=== PATIENT | male | born 1965 | race Caucasian/White ===

== ENCOUNTER 2023-08-21 13:33 | Inpatient (IN) | payer BC, OTHER, MEDICARE, MEDICAID ==
[~2023-08-21] VITALS: Ht 182.9 cm; Wt 116.6 kg
[2023-08-21 18:54] VITALS: BP 135/63; TEMP 97.9; O2SAT 95
[2023-08-21] MEDS ORDERED: GLUCOSE 4GM CHEW TABLET PO PRN (19:25)
[2023-08-21] MEDS ORDERED: DEXTROSE 50% 50ML SYRINGE IV PRN (19:25)
[2023-08-21] MEDS ORDERED: GLUCAGON INJ 1MG VIAL SC PRN (19:25)
[2023-08-21 19:32] LABS: ABG BASE EXCESS -1.6 (-2.0-2.0); ABG HCO3 24.2 MMOL/L (22.0-26.0); ABG O2 SATURATION 93.8 % (95.0-99.0); ABG PARTIAL PRESSURE CO2 45.8 mmHg (35.0-45.0); ABG PARTIAL PRESSURE O2 72.1 mmHg (75.0-100.0); ABG STANDARD HCO3 23.1 MMOL/L. (22.0-26.0); ABG TOTAL CO2 25.6 MMOL/L (22.0-29.0)
[2023-08-21 19:51] LABS: BASO % 0.6 % (0.0-1.0); EOS # 0.1 10^3/uL (0.0-0.5); EOS % 2.6 % (0.0-3.0); HEMATOCRIT 24.2 % (42.0-52.0); HEMOGLOBIN 7.3 g/dl (13.5-17.5); LYMPH # 0.3 10^3/uL (1.5-5.0); LYMPH % 5.9 % (24.0-44.0); MEAN CORPUSCULAR HEMOGLOBIN 28.3 pg (27.0-33.0); MEAN CORPUSCULAR HGB CONC 30.2 g/dl (32.0-36.5); MEAN CORPUSCULAR VOLUME 93.8 fl (80.0-96.0); MONO # 0.6 10^3/uL (0.0-0.8); MONO % 11.5 % (2.0-8.0); NEUTROPHILS # 4.2 10^3/uL (1.5-8.5); NEUTROPHILS % 78.1 % (36.0-66.0); PLATELET COUNT, AUTOMATED 127 10^3/uL (150-450); RED BLOOD COUNT 2.58 10^6/uL (4.30-6.10); WHITE BLOOD COUNT 5.4 10^3/uL (4.0-10.0)
[2023-08-21 19:52] VITALS: O2SAT 94
[2023-08-21] MEDS: IPRATROPIUM 0.5MG/ALBUTEROL 2.5MG INH SOL UD 3ML (DUONEB) NEB SCH ×2 (20:00→21:15)
[2023-08-21 20:08] LABS: INR 1.23; PROTHROMBIN TIME 15.1 SECONDS (12.5-14.5)
[2023-08-21 20:09] LABS: PARTIAL THROMBOPLASTIN TIME 28.5 SECONDS (24.8-34.2)
[2023-08-21 20:23] LABS: C REACTIVE PROTEIN QUANTITATIV 2.6 MG/DL (<1.0)
[2023-08-21 20:24] LABS: CK-MB VALUE MASS 2.3 NG/ML (<3.6); MB/CK RELATIVE INDEX 5.89 (< OR =4)
[2023-08-21 20:25] LABS: ALBUMIN 2.6 G/DL (3.2-5.2); BILIRUBIN,TOTAL 0.5 MG/DL (0.3-1.2); CREATININE FOR GFR 3.45 MG/DL (0.70-1.30); GLOMERULAR FILTRATION RATE 19.5 (>56); MAGNESIUM LEVEL 2.6 MG/DL (1.8-2.4); POTASSIUM SERUM 4.6 MMOL/L (3.5-5.1); TOTAL PROTEIN 6.1 G/DL (5.7-8.2)
[2023-08-21] MEDS ORDERED: NS 1,000 ML IV SCH (20:35)
[2023-08-21] MEDS ORDERED: LR 1,000 ML IV SCH (20:35)
[2023-08-21] MEDS ORDERED: ALBUTEROL SULFATE 2.5MG/0.5ML INH NEB SOLN NEB ONE (20:45)
[2023-08-21] MEDS ORDERED: ALBUTEROL SULFATE 2.5MG/0.5ML INH NEB SOLN NEB PRN (20:55)
[2023-08-21] MEDS: INSULIN LISPRO (NovoLOG) PER UNIT SC SCH (21:00)
[2023-08-21] MEDS: methylPREDNISolone 40MG 1ML VIAL IV SCH (21:43)
[2023-08-21] MEDS ORDERED: cefTRIAXone SOD 1 GM in D5W MINI-BAG PLUS 50 ML IV SCH (22:00)
[2023-08-21] MEDS: PIPERACILLIN/TAZOBACTAM SOD 3.375 GM in D5W MINI-BAG PLUS 50 ML IV SCH (22:03)
[2023-08-21] MEDS ORDERED: BREO1INH PO (22:34)
[2023-08-21] MEDS ORDERED: INSUH10VL SC (22:34)
[2023-08-21] MEDS ORDERED: VENL75CA2 PO (22:34)
[2023-08-21] MEDS ORDERED: MUCI1TAB16 PO (22:34)
[2023-08-21] MEDS ORDERED: CEPH250T PO (22:34)
[2023-08-21] MEDS ORDERED: FLOM0.4C39 PO (22:34)
[2023-08-21] MEDS ORDERED: FURO40TA2 PO (22:34)
[2023-08-21] MEDS ORDERED: HYDR25TA PO (22:34)
[2023-08-21] MEDS ORDERED: IPRA0.00 INH (22:52)
[2023-08-21] MEDS ORDERED: XALA0.007 OU (22:52)
[2023-08-21] MEDS ORDERED: RANO10002 PO (22:52)
[2023-08-21] MEDS ORDERED: ISOS20TA4 PO (22:52)
[2023-08-21] MEDS ORDERED: NITR0.4S14 SL (22:52)
[2023-08-21] MEDS ORDERED: SENN-23 PO (22:52)
[2023-08-21] MEDS ORDERED: MELA3TAB30 PO (22:52)
[2023-08-21] MEDS ORDERED: ATOR1TAB21 PO (22:52)
[2023-08-21] MEDS ORDERED: AMLO1TAB24 PO (22:52)
[2023-08-21] MEDS ORDERED: AMIO200T49 PO (22:52)
[2023-08-21] MEDS ORDERED: METO25TA4 PO (22:52)
[2023-08-21] MEDS ORDERED: ONDA-83 PO (22:52)
[2023-08-21] MEDS ORDERED: ACET1TAB55 PO (22:52)
[2023-08-21] MEDS ORDERED: BUSP30TA PO (22:52)
[2023-08-21] MEDS ORDERED: LANTINJ4 SQ (22:52)
[2023-08-21] MEDS ORDERED: BACI1CAP PO (22:52)
[2023-08-21] MEDS ORDERED: HOME MED LIST COMPLETE! XX SCH (22:55)
[2023-08-21 23:29] VITALS: BP 121/67; TEMP 97.4; O2SAT 92
[2023-08-21 23:46] VITALS: BP 127/73; TEMP 97.5; O2SAT 93
[2023-08-22] VITALS (11 sets, daily range): BP systolic 111–141; BP diastolic 57–79; TEMP 97–98.1; O2SAT 89–100
[2023-08-22] MEDS: IPRATROPIUM 0.5MG/ALBUTEROL 2.5MG INH SOL UD 3ML (DUONEB) NEB SCH ×4 (02:42→19:24)
[2023-08-22] MEDS: **hydrALAZINE HCL** 25 MG TAB PO SCH ×4 (02:45→21:07)
[2023-08-22] MEDS: METOPROLOL TART 25 MG TABLET PO SCH ×3 (02:45→21:07)
[2023-08-22] MEDS: LEVEMIR (INSULIN DETEMIR) 1 UNITS/0.01ML SQ SCH ×3 (02:45→21:07)
[2023-08-22] MEDS: ISOSORBIDE DIN. (ISORDIL) 20 MG TAB PO SCH ×4 (03:00→21:07)
[2023-08-22] MEDS: LATANOPROST 0.005% OPHTH SOLN 2.5 ML OU SCH ×2 (03:36→21:07)
[2023-08-22] MEDS: PIPERACILLIN/TAZOBACTAM SOD 3.375 GM in D5W MINI-BAG PLUS 50 ML IV SCH ×4 (04:38→22:57)
[2023-08-22 04:43] LABS: HEMATOCRIT 26.9 % (42.0-52.0); HEMOGLOBIN 8.3 g/dl (13.5-17.5)
[2023-08-22] MEDS ORDERED: FUROSEMIDE 20MG/2ML VIAL IV ONE (05:00)
[2023-08-22] MEDS ORDERED: ZINC OXIDE 30.6% CREAM 92GM TUBE (SECURA EPC) TOP SCH (06:00)
[2023-08-22 06:23] LABS: CALCIUM LEVEL 8.3 MG/DL (8.5-10.1); CREATININE FOR GFR 3.33 MG/DL (0.70-1.30); GLOMERULAR FILTRATION RATE 20.3 (>56); POTASSIUM SERUM 4.9 MMOL/L (3.5-5.1)
[2023-08-22 06:27] LABS: HEMATOCRIT 26.3 % (42.0-52.0); HEMOGLOBIN 8.2 g/dl (13.5-17.5); MEAN CORPUSCULAR HEMOGLOBIN 28.9 pg (27.0-33.0); MEAN CORPUSCULAR HGB CONC 31.2 g/dl (32.0-36.5); MEAN CORPUSCULAR VOLUME 92.6 fl (80.0-96.0); PLATELET COUNT, AUTOMATED 126 10^3/uL (150-450); RED BLOOD COUNT 2.84 10^6/uL (4.30-6.10); WHITE BLOOD COUNT 5.3 10^3/uL (4.0-10.0)
[2023-08-22] MEDS: methylPREDNISolone 40MG 1ML VIAL IV SCH ×2 (06:31→17:49)
[2023-08-22] MEDS: DIAPER RELIEF PASTE (DESITIN) 60GM TOP SCH (06:31)
[2023-08-22] MEDS: HEPARIN SOD (PORCINE) 5000UNITS/ML 1ML VIAL/SYRINGE SC SCH ×3 (06:31→21:07)
[2023-08-22] MEDS: busPIRone 10 MG TAB PO SCH ×2 (08:44→21:07)
[2023-08-22] MEDS: VENLAFAXINE **XR** 75MG CAPSULE PO SCH (08:45)
[2023-08-22] MEDS: TAMSULOSIN 0.4 MG CAP PO SCH (08:45)
[2023-08-22] MEDS: AMIODARONE 200 MG TAB (PACERONE) PO SCH (08:45)
[2023-08-22] MEDS: INSULIN LISPRO (NovoLOG) PER UNIT SC SCH ×4 (08:50→20:36)
[2023-08-22] MEDS ORDERED: amLODIPine 5 MG TAB PO SCH (09:00)
[2023-08-22] MEDS ORDERED: NITROGLYCERIN 0.4MG SUBL TABLET SL PRN (10:05)
[2023-08-22] MEDS: FUROSEMIDE injection 250 MG in D5W 225 ML IV SCH (11:50)
[2023-08-22] MEDS: ADVAIR HFA 115/21MCG INHALER INH SCH ×2 (11:58→19:24)
[2023-08-22] MEDS: RANOLAZINE 500MG ER TAB PO SCH ×2 (13:18→21:07)
[2023-08-22] MEDS: LACTOBACILLUS ACIDOPHILUS CAP (BACID) PO SCH (18:06)
[2023-08-22] MEDS ORDERED: ASPIRIN 81MG CHEW TABLET PO ONE (21:00)
[2023-08-22] MEDS: ATORVASTATIN 20 MG TAB PO SCH (21:07)
[2023-08-22] MEDS: SENOKOT S TAB PO SCH (21:07)
[2023-08-23] VITALS (13 sets, daily range): BP systolic 107–135; BP diastolic 53–87; TEMP 97–98.1; O2SAT 90–97
[2023-08-23] MEDS: IPRATROPIUM 0.5MG/ALBUTEROL 2.5MG INH SOL UD 3ML (DUONEB) NEB SCH ×4 (01:37→19:57)
[2023-08-23] MEDS: PIPERACILLIN/TAZOBACTAM SOD 3.375 GM in D5W MINI-BAG PLUS 50 ML IV SCH ×4 (04:34→21:57)
[2023-08-23] MEDS: HEPARIN SOD (PORCINE) 5000UNITS/ML 1ML VIAL/SYRINGE SC SCH ×3 (05:35→21:56)
[2023-08-23] MEDS: methylPREDNISolone 40MG 1ML VIAL IV SCH (05:35)
[2023-08-23] MEDS ORDERED: FUROSEMIDE 20MG/2ML VIAL IV SCH (06:00)
[2023-08-23 06:26] LABS: HEMATOCRIT 24.6 % (42.0-52.0); HEMOGLOBIN 7.8 g/dl (13.5-17.5); LYMPH # 0.2 10^3/uL (1.5-5.0); LYMPH % 4.7 % (24.0-44.0); MEAN CORPUSCULAR HEMOGLOBIN 29.1 pg (27.0-33.0); MEAN CORPUSCULAR HGB CONC 31.7 g/dl (32.0-36.5); MEAN CORPUSCULAR VOLUME 91.8 fl (80.0-96.0); MONO # 0.4 10^3/uL (0.0-0.8); MONO % 7.9 % (2.0-8.0); NEUTROPHILS # 4.5 10^3/uL (1.5-8.5); NEUTROPHILS % 86.6 % (36.0-66.0); PLATELET COUNT, AUTOMATED 127 10^3/uL (150-450); RED BLOOD COUNT 2.68 10^6/uL (4.30-6.10); WHITE BLOOD COUNT 5.2 10^3/uL (4.0-10.0)
[2023-08-23 06:45] LABS: ALBUMIN 2.5 G/DL (3.2-5.2); BILIRUBIN,TOTAL 0.4 MG/DL (0.3-1.2); CALCIUM LEVEL 8.3 MG/DL (8.5-10.1); CREATININE FOR GFR 3.1 MG/DL (0.70-1.30); GLOMERULAR FILTRATION RATE 22.1 (>56); MAGNESIUM LEVEL 2.4 MG/DL (1.8-2.4); POTASSIUM SERUM 4.3 MMOL/L (3.5-5.1); TOTAL PROTEIN 5.9 G/DL (5.7-8.2)
[2023-08-23] MEDS: ADVAIR HFA 115/21MCG INHALER INH SCH ×2 (07:22→19:57)
[2023-08-23] MEDS: INSULIN LISPRO (NovoLOG) PER UNIT SC SCH ×4 (07:30→21:00)
[2023-08-23] MEDS: FUROSEMIDE injection 250 MG in D5W 225 ML IV SCH (08:38)
[2023-08-23] MEDS ORDERED: ASPIRIN 81MG ENTERIC TABLET PO SCH (09:00)
[2023-08-23] MEDS: busPIRone 10 MG TAB PO SCH ×2 (09:47→21:52)
[2023-08-23] MEDS: RANOLAZINE 500MG ER TAB PO SCH ×2 (09:47→21:55)
[2023-08-23] MEDS: VENLAFAXINE **XR** 75MG CAPSULE PO SCH (09:48)
[2023-08-23] MEDS: METOPROLOL TART 25 MG TABLET PO SCH ×2 (09:48→21:55)
[2023-08-23] MEDS: TAMSULOSIN 0.4 MG CAP PO SCH (09:48)
[2023-08-23] MEDS: ASPIRIN 81MG CHEW TABLET PO SCH (09:48)
[2023-08-23] MEDS: SPIRONOLACTONE 25 MG TAB PO SCH ×2 (09:57→18:03)
[2023-08-23] MEDS: ISOSORBIDE DIN. (ISORDIL) 20 MG TAB PO SCH ×3 (09:57→22:02)
[2023-08-23] MEDS: AMIODARONE 200 MG TAB (PACERONE) PO SCH (09:57)
[2023-08-23] MEDS: LACTOBACILLUS ACIDOPHILUS CAP (BACID) PO SCH ×2 (09:57→18:03)
[2023-08-23] MEDS: LEVEMIR (INSULIN DETEMIR) 1 UNITS/0.01ML SQ SCH ×2 (09:58→21:56)
[2023-08-23] MEDS: DIAPER RELIEF PASTE (DESITIN) 60GM TOP SCH (09:58)
[2023-08-23] MEDS: **hydrALAZINE HCL** 25 MG TAB PO SCH (10:00)
[2023-08-23] MEDS: predniSONE 20 MG TAB PO SCH (12:34)
[2023-08-23] MEDS: ATORVASTATIN 20 MG TAB PO SCH (21:52)
[2023-08-23] MEDS: SENOKOT S TAB PO SCH (21:55)
[2023-08-23] MEDS: LATANOPROST 0.005% OPHTH SOLN 2.5 ML OU SCH (21:56)
[2023-08-23 23:41] LABS: HEMATOCRIT 28.1 % (42.0-52.0); HEMOGLOBIN 8.9 g/dl (13.5-17.5)
[2023-08-24] VITALS (42 sets, daily range): BP systolic 131–152; BP diastolic 67–80; TEMP 97.3–97.9; O2SAT 86–100
[2023-08-24] MEDS: IPRATROPIUM 0.5MG/ALBUTEROL 2.5MG INH SOL UD 3ML (DUONEB) NEB SCH ×4 (02:38→19:12)
[2023-08-24] MEDS: HEPARIN SOD (PORCINE) 5000UNITS/ML 1ML VIAL/SYRINGE SC SCH ×3 (05:26→21:35)
[2023-08-24 05:52] LABS: BASO % 0.2 % (0.0-1.0); HEMATOCRIT 29.7 % (42.0-52.0); HEMOGLOBIN 9.4 g/dl (13.5-17.5); LYMPH # 0.3 10^3/uL (1.5-5.0); LYMPH % 4.3 % (24.0-44.0); MEAN CORPUSCULAR HEMOGLOBIN 28.7 pg (27.0-33.0); MEAN CORPUSCULAR HGB CONC 31.6 g/dl (32.0-36.5); MEAN CORPUSCULAR VOLUME 90.5 fl (80.0-96.0); MONO # 0.5 10^3/uL (0.0-0.8); MONO % 8.7 % (2.0-8.0); NEUTROPHILS % 85.8 % (36.0-66.0); PLATELET COUNT, AUTOMATED 136 10^3/uL (150-450); RED BLOOD COUNT 3.28 10^6/uL (4.30-6.10); WHITE BLOOD COUNT 5.9 10^3/uL (4.0-10.0)
[2023-08-24 06:13] LABS: ALBUMIN 2.5 G/DL (3.2-5.2); BILIRUBIN,TOTAL 0.5 MG/DL (0.3-1.2); CALCIUM LEVEL 8.5 MG/DL (8.5-10.1); CREATININE FOR GFR 3.07 MG/DL (0.70-1.30); GLOMERULAR FILTRATION RATE 22.3 (>56); MAGNESIUM LEVEL 2.3 MG/DL (1.8-2.4); TOTAL PROTEIN 5.9 G/DL (5.7-8.2)
[2023-08-24] MEDS: ADVAIR HFA 115/21MCG INHALER INH SCH ×2 (08:00→19:12)
[2023-08-24] MEDS: INSULIN LISPRO (NovoLOG) PER UNIT SC SCH ×4 (08:56→21:00)
[2023-08-24] MEDS: LEVEMIR (INSULIN DETEMIR) 1 UNITS/0.01ML SQ SCH ×2 (08:56→21:35)
[2023-08-24] MEDS: RANOLAZINE 500MG ER TAB PO SCH ×2 (08:57→21:33)
[2023-08-24] MEDS: busPIRone 10 MG TAB PO SCH ×2 (08:57→21:32)
[2023-08-24] MEDS: VENLAFAXINE **XR** 75MG CAPSULE PO SCH (08:59)
[2023-08-24] MEDS: ISOSORBIDE DIN. (ISORDIL) 20 MG TAB PO SCH ×3 (08:59→21:32)
[2023-08-24] MEDS: ASPIRIN 81MG CHEW TABLET PO SCH (08:59)
[2023-08-24] MEDS: DIAPER RELIEF PASTE (DESITIN) 60GM TOP SCH (08:59)
[2023-08-24] MEDS: LACTOBACILLUS ACIDOPHILUS CAP (BACID) PO SCH ×2 (09:00→17:32)
[2023-08-24] MEDS: METOPROLOL TART 25 MG TABLET PO SCH ×2 (09:00→21:33)
[2023-08-24] MEDS: AMIODARONE 200 MG TAB (PACERONE) PO SCH (09:00)
[2023-08-24] MEDS: SPIRONOLACTONE 25 MG TAB PO SCH ×2 (09:00→17:32)
[2023-08-24] MEDS: TAMSULOSIN 0.4 MG CAP PO SCH (09:01)
[2023-08-24] MEDS: predniSONE 20 MG TAB PO SCH (09:01)
[2023-08-24] MEDS: FUROSEMIDE injection 250 MG in D5W 225 ML IV SCH (09:56)
[2023-08-24] MEDS: ATORVASTATIN 20 MG TAB PO SCH (21:32)
[2023-08-24] MEDS: SENOKOT S TAB PO SCH (21:33)
[2023-08-24] MEDS: LATANOPROST 0.005% OPHTH SOLN 2.5 ML OU SCH (21:35)
[2023-08-25] VITALS (14 sets, daily range): BP systolic 127–152; BP diastolic 60–79; TEMP 96.7–98.1; O2SAT 91–100
[2023-08-25] MEDS: IPRATROPIUM 0.5MG/ALBUTEROL 2.5MG INH SOL UD 3ML (DUONEB) NEB SCH ×4 (01:37→19:27)
[2023-08-25] MEDS: HEPARIN SOD (PORCINE) 5000UNITS/ML 1ML VIAL/SYRINGE SC SCH ×3 (05:44→22:18)
[2023-08-25 06:35] LABS: EOS % 0.2 % (0.0-3.0); HEMATOCRIT 29.2 % (42.0-52.0); HEMOGLOBIN 9.3 g/dl (13.5-17.5); LYMPH # 0.5 10^3/uL (1.5-5.0); LYMPH % 7.5 % (24.0-44.0); MEAN CORPUSCULAR HEMOGLOBIN 28.5 pg (27.0-33.0); MEAN CORPUSCULAR HGB CONC 31.8 g/dl (32.0-36.5); MEAN CORPUSCULAR VOLUME 89.6 fl (80.0-96.0); MONO # 0.7 10^3/uL (0.0-0.8); MONO % 10.4 % (2.0-8.0); NEUTROPHILS # 5.3 10^3/uL (1.5-8.5); PLATELET COUNT, AUTOMATED 133 10^3/uL (150-450); RED BLOOD COUNT 3.26 10^6/uL (4.30-6.10); WHITE BLOOD COUNT 6.5 10^3/uL (4.0-10.0)
[2023-08-25 07:06] LABS: ALBUMIN 2.4 G/DL (3.2-5.2); BILIRUBIN,TOTAL 0.6 MG/DL (0.3-1.2); CALCIUM LEVEL 8.5 MG/DL (8.5-10.1); CREATININE FOR GFR 2.81 MG/DL (0.70-1.30); GLOMERULAR FILTRATION RATE 24.7 (>56); MAGNESIUM LEVEL 2.1 MG/DL (1.8-2.4); POTASSIUM SERUM 3.7 MMOL/L (3.5-5.1); TOTAL PROTEIN 5.8 G/DL (5.7-8.2)
[2023-08-25] MEDS: ADVAIR HFA 115/21MCG INHALER INH SCH ×2 (07:53→19:28)
[2023-08-25] MEDS: INSULIN LISPRO (NovoLOG) PER UNIT SC SCH ×4 (08:32→20:08)
[2023-08-25] MEDS: VENLAFAXINE **XR** 75MG CAPSULE PO SCH (08:33)
[2023-08-25] MEDS: LACTOBACILLUS ACIDOPHILUS CAP (BACID) PO SCH ×2 (08:33→18:09)
[2023-08-25] MEDS: busPIRone 10 MG TAB PO SCH ×2 (08:33→22:18)
[2023-08-25] MEDS: RANOLAZINE 500MG ER TAB PO SCH ×2 (08:33→22:16)
[2023-08-25] MEDS: LEVEMIR (INSULIN DETEMIR) 1 UNITS/0.01ML SQ SCH ×2 (08:33→22:19)
[2023-08-25] MEDS: ASPIRIN 81MG CHEW TABLET PO SCH (08:34)
[2023-08-25] MEDS: predniSONE 10MG TAB PO SCH (08:34)
[2023-08-25] MEDS: ISOSORBIDE DIN. (ISORDIL) 20 MG TAB PO SCH ×3 (08:34→22:17)
[2023-08-25] MEDS: AMIODARONE 200 MG TAB (PACERONE) PO SCH (08:34)
[2023-08-25] MEDS: METOPROLOL TART 25 MG TABLET PO SCH ×2 (08:34→22:17)
[2023-08-25] MEDS: TAMSULOSIN 0.4 MG CAP PO SCH (08:34)
[2023-08-25] MEDS: SPIRONOLACTONE 25 MG TAB PO SCH ×2 (08:34→18:09)
[2023-08-25] MEDS: DIAPER RELIEF PASTE (DESITIN) 60GM TOP SCH (08:41)
[2023-08-25] MEDS: FUROSEMIDE injection 250 MG in D5W 225 ML IV SCH (09:53)
[2023-08-25] MEDS: SENOKOT S TAB PO SCH (22:18)
[2023-08-25] MEDS: ATORVASTATIN 20 MG TAB PO SCH (22:18)
[2023-08-25] MEDS: LATANOPROST 0.005% OPHTH SOLN 2.5 ML OU SCH (22:19)
[2023-08-26] VITALS (18 sets, daily range): BP systolic 121–173; BP diastolic 59–84; TEMP 97.3–97.9; O2SAT 95–100
[2023-08-26] MEDS: IPRATROPIUM 0.5MG/ALBUTEROL 2.5MG INH SOL UD 3ML (DUONEB) NEB SCH ×4 (00:44→19:24)
[2023-08-26] MEDS: HEPARIN SOD (PORCINE) 5000UNITS/ML 1ML VIAL/SYRINGE SC SCH ×3 (05:53→20:24)
[2023-08-26] MEDS: ADVAIR HFA 115/21MCG INHALER INH SCH ×2 (07:40→19:24)
[2023-08-26 08:09] LABS: ALBUMIN 2.4 G/DL (3.2-5.2); BILIRUBIN,TOTAL 0.5 MG/DL (0.3-1.2); CALCIUM LEVEL 8.5 MG/DL (8.5-10.1); CREATININE FOR GFR 2.28 MG/DL (0.70-1.30); GLOMERULAR FILTRATION RATE 31.5 (>56); MAGNESIUM LEVEL 1.8 MG/DL (1.8-2.4); POTASSIUM SERUM 3.8 MMOL/L (3.5-5.1); TOTAL PROTEIN 5.6 G/DL (5.7-8.2)
[2023-08-26 08:34] LABS: EOS % 0.3 % (0.0-3.0); HEMATOCRIT 30.2 % (42.0-52.0); HEMOGLOBIN 9.5 g/dl (13.5-17.5); LYMPH # 0.5 10^3/uL (1.5-5.0); MEAN CORPUSCULAR HEMOGLOBIN 28.2 pg (27.0-33.0); MEAN CORPUSCULAR HGB CONC 31.5 g/dl (32.0-36.5); MEAN CORPUSCULAR VOLUME 89.6 fl (80.0-96.0); MONO # 0.6 10^3/uL (0.0-0.8); MONO % 9.8 % (2.0-8.0); NEUTROPHILS # 5.4 10^3/uL (1.5-8.5); NEUTROPHILS % 82.3 % (36.0-66.0); PLATELET COUNT, AUTOMATED 132 10^3/uL (150-450); RED BLOOD COUNT 3.37 10^6/uL (4.30-6.10); WHITE BLOOD COUNT 6.5 10^3/uL (4.0-10.0)
[2023-08-26] MEDS: METOPROLOL TART 25 MG TABLET PO SCH ×2 (09:00→20:25)
[2023-08-26] MEDS: LACTOBACILLUS ACIDOPHILUS CAP (BACID) PO SCH ×2 (09:35→17:13)
[2023-08-26] MEDS: VENLAFAXINE **XR** 75MG CAPSULE PO SCH (09:35)
[2023-08-26] MEDS: FUROSEMIDE injection 250 MG in D5W 225 ML IV SCH (09:35)
[2023-08-26] MEDS: predniSONE 10MG TAB PO SCH (09:36)
[2023-08-26] MEDS: SPIRONOLACTONE 25 MG TAB PO SCH ×2 (09:36→17:13)
[2023-08-26] MEDS: RANOLAZINE 500MG ER TAB PO SCH ×2 (09:36→20:25)
[2023-08-26] MEDS: busPIRone 10 MG TAB PO SCH ×2 (09:36→20:25)
[2023-08-26] MEDS: AMIODARONE 200 MG TAB (PACERONE) PO SCH (09:37)
[2023-08-26] MEDS: ASPIRIN 81MG CHEW TABLET PO SCH (09:37)
[2023-08-26] MEDS: TAMSULOSIN 0.4 MG CAP PO SCH (09:37)
[2023-08-26] MEDS: LEVEMIR (INSULIN DETEMIR) 1 UNITS/0.01ML SQ SCH ×2 (09:37→20:26)
[2023-08-26] MEDS: INSULIN LISPRO (NovoLOG) PER UNIT SC SCH ×4 (09:38→20:26)
[2023-08-26] MEDS: **hydrALAZINE HCL** 25 MG TAB PO SCH ×3 (09:38→20:25)
[2023-08-26] MEDS: DIAPER RELIEF PASTE (DESITIN) 60GM TOP SCH (09:43)
[2023-08-26] MEDS: ISOSORBIDE DIN. (ISORDIL) 20 MG TAB PO SCH ×3 (09:43→20:24)
[2023-08-26] MEDS ORDERED: ARTIFICIAL TEARS DROPS 15ML BTL (VISINE DRY RELIEF) OU PRN (15:45)
[2023-08-26] MEDS: LACRILUBE (AKWA TEARS) OPHTH OINT 3.5GM OU SCH (20:24)
[2023-08-26] MEDS: SENOKOT S TAB PO SCH (20:25)
[2023-08-26] MEDS: ATORVASTATIN 20 MG TAB PO SCH (20:25)
[2023-08-26] MEDS: LATANOPROST 0.005% OPHTH SOLN 2.5 ML OU SCH (20:26)
[2023-08-27] VITALS (16 sets, daily range): BP systolic 126–175; BP diastolic 61–83; TEMP 96.6–98.7; O2SAT 4–100
[2023-08-27] MEDS: IPRATROPIUM 0.5MG/ALBUTEROL 2.5MG INH SOL UD 3ML (DUONEB) NEB SCH ×4 (01:07→19:22)
[2023-08-27 04:51] LABS: EOS % 0.2 % (0.0-3.0); HEMATOCRIT 29.2 % (42.0-52.0); HEMOGLOBIN 9.3 g/dl (13.5-17.5); LYMPH # 0.4 10^3/uL (1.5-5.0); MEAN CORPUSCULAR HEMOGLOBIN 28.2 pg (27.0-33.0); MEAN CORPUSCULAR HGB CONC 31.8 g/dl (32.0-36.5); MEAN CORPUSCULAR VOLUME 88.5 fl (80.0-96.0); MONO # 0.6 10^3/uL (0.0-0.8); MONO % 10.2 % (2.0-8.0); NEUTROPHILS # 4.4 10^3/uL (1.5-8.5); NEUTROPHILS % 80.9 % (36.0-66.0); PLATELET COUNT, AUTOMATED 126 10^3/uL (150-450); WHITE BLOOD COUNT 5.5 10^3/uL (4.0-10.0)
[2023-08-27 05:16] LABS: ALBUMIN 2.3 G/DL (3.2-5.2); BILIRUBIN,TOTAL 0.5 MG/DL (0.3-1.2); CALCIUM LEVEL 8.3 MG/DL (8.5-10.1); CREATININE FOR GFR 2.07 MG/DL (0.70-1.30); GLOMERULAR FILTRATION RATE 35.2 (>56); MAGNESIUM LEVEL 1.8 MG/DL (1.8-2.4); POTASSIUM SERUM 3.7 MMOL/L (3.5-5.1); TOTAL PROTEIN 5.5 G/DL (5.7-8.2)
[2023-08-27] MEDS: HEPARIN SOD (PORCINE) 5000UNITS/ML 1ML VIAL/SYRINGE SC SCH ×3 (05:25→21:33)
[2023-08-27] MEDS: ADVAIR HFA 115/21MCG INHALER INH SCH ×2 (07:23→19:22)
[2023-08-27] MEDS: LEVEMIR (INSULIN DETEMIR) 1 UNITS/0.01ML SQ SCH ×2 (09:59→21:37)
[2023-08-27] MEDS: TORSEMIDE (DEMADEX) 50 MG PER 1/2 TAB PO SCH ×2 (10:00→15:54)
[2023-08-27] MEDS: INSULIN LISPRO (NovoLOG) PER UNIT SC SCH ×4 (10:00→21:37)
[2023-08-27] MEDS: AMIODARONE 200 MG TAB (PACERONE) PO SCH (10:00)
[2023-08-27] MEDS: predniSONE 10MG TAB PO SCH (10:00)
[2023-08-27] MEDS: VENLAFAXINE **XR** 75MG CAPSULE PO SCH (10:01)
[2023-08-27] MEDS: LACTOBACILLUS ACIDOPHILUS CAP (BACID) PO SCH ×2 (10:01→17:35)
[2023-08-27] MEDS: RANOLAZINE 500MG ER TAB PO SCH ×2 (10:01→21:32)
[2023-08-27] MEDS: **hydrALAZINE HCL** 25 MG TAB PO SCH ×3 (10:01→21:34)
[2023-08-27] MEDS: busPIRone 10 MG TAB PO SCH ×2 (10:01→21:33)
[2023-08-27] MEDS: METOPROLOL TART 25 MG TABLET PO SCH ×2 (10:02→21:35)
[2023-08-27] MEDS: TAMSULOSIN 0.4 MG CAP PO SCH (10:02)
[2023-08-27] MEDS: ASPIRIN 81MG CHEW TABLET PO SCH (10:02)
[2023-08-27] MEDS: SPIRONOLACTONE 25 MG TAB PO SCH ×2 (10:02→15:53)
[2023-08-27] MEDS: LACRILUBE (AKWA TEARS) OPHTH OINT 3.5GM OU SCH ×3 (10:03→21:36)
[2023-08-27] MEDS: DIAPER RELIEF PASTE (DESITIN) 60GM TOP SCH (10:03)
[2023-08-27] MEDS: ISOSORBIDE DIN. (ISORDIL) 20 MG TAB PO SCH ×3 (10:07→21:42)
[2023-08-27 12:37] LABS: HEMOGLOBIN A1c 4.8 % (4.0-6.0)
[2023-08-27] MEDS: SENOKOT S TAB PO SCH (21:32)
[2023-08-27] MEDS: ATORVASTATIN 20 MG TAB PO SCH (21:34)
[2023-08-27] MEDS: LATANOPROST 0.005% OPHTH SOLN 2.5 ML OU SCH (21:36)
[2023-08-28] VITALS (16 sets, daily range): BP systolic 124–155; BP diastolic 60–75; TEMP 96.7–98; O2SAT 92–98
[2023-08-28] MEDS: IPRATROPIUM 0.5MG/ALBUTEROL 2.5MG INH SOL UD 3ML (DUONEB) NEB SCH ×4 (01:12→19:10)
[2023-08-28 06:25] LABS: EOS % 0.1 % (0.0-3.0); HEMATOCRIT 29.3 % (42.0-52.0); HEMOGLOBIN 9.2 g/dl (13.5-17.5); LYMPH # 0.5 10^3/uL (1.5-5.0); MEAN CORPUSCULAR HEMOGLOBIN 27.8 pg (27.0-33.0); MEAN CORPUSCULAR HGB CONC 31.4 g/dl (32.0-36.5); MEAN CORPUSCULAR VOLUME 88.5 fl (80.0-96.0); MONO # 0.7 10^3/uL (0.0-0.8); MONO % 10.1 % (2.0-8.0); NEUTROPHILS # 5.5 10^3/uL (1.5-8.5); NEUTROPHILS % 81.8 % (36.0-66.0); PLATELET COUNT, AUTOMATED 132 10^3/uL (150-450); RED BLOOD COUNT 3.31 10^6/uL (4.30-6.10); WHITE BLOOD COUNT 6.7 10^3/uL (4.0-10.0)
[2023-08-28] MEDS: HEPARIN SOD (PORCINE) 5000UNITS/ML 1ML VIAL/SYRINGE SC SCH ×3 (06:31→21:55)
[2023-08-28] MEDS: ADVAIR HFA 115/21MCG INHALER INH SCH ×2 (07:10→19:10)
[2023-08-28 07:12] LABS: ALBUMIN 2.3 G/DL (3.2-5.2); ALKALINE PHOSPHATASE 59 U/L (46-116); ALT/SGPT 67 U/L (7.0-40); AST/SGOT 39 U/L (<34); BILIRUBIN,TOTAL 0.4 MG/DL (0.3-1.2); BLOOD UREA NITROGEN 73 MG/DL (9-23); CALCIUM LEVEL 8.2 MG/DL (8.5-10.1); CARBON DIOXIDE LEVEL > 40.0 MMOL/L (20-31); CHLORIDE LEVEL 96 MMOL/L (98-107); CREATININE FOR GFR 1.95 MG/DL (0.70-1.30); GLOMERULAR FILTRATION RATE 37.7 (>56); GLUCOSE, FASTING 314 MG/DL (60-100); MAGNESIUM LEVEL 1.7 MG/DL (1.8-2.4); POTASSIUM SERUM 3.8 MMOL/L (3.5-5.1); SODIUM LEVEL 140 MMOL/L (136-145); TOTAL PROTEIN 5.4 G/DL (5.7-8.2)
[2023-08-28] MEDS: LEVEMIR (INSULIN DETEMIR) 1 UNITS/0.01ML SQ SCH ×2 (08:48→21:57)
[2023-08-28] MEDS: INSULIN LISPRO (NovoLOG) PER UNIT SC SCH ×4 (08:48→21:56)
[2023-08-28] MEDS: TAMSULOSIN 0.4 MG CAP PO SCH (08:49)
[2023-08-28] MEDS: LACTOBACILLUS ACIDOPHILUS CAP (BACID) PO SCH ×2 (08:49→17:31)
[2023-08-28] MEDS: RANOLAZINE 500MG ER TAB PO SCH ×2 (08:49→21:54)
[2023-08-28] MEDS: TORSEMIDE (DEMADEX) 50 MG PER 1/2 TAB PO SCH ×2 (08:49→17:31)
[2023-08-28] MEDS: ASPIRIN 81MG CHEW TABLET PO SCH (08:49)
[2023-08-28] MEDS: busPIRone 10 MG TAB PO SCH ×2 (08:49→21:55)
[2023-08-28] MEDS: VENLAFAXINE **XR** 75MG CAPSULE PO SCH (08:49)
[2023-08-28] MEDS: **hydrALAZINE HCL** 25 MG TAB PO SCH ×3 (08:50→21:55)
[2023-08-28] MEDS: METOPROLOL TART 25 MG TABLET PO SCH ×2 (08:50→21:57)
[2023-08-28] MEDS: predniSONE 10MG TAB PO SCH (08:51)
[2023-08-28] MEDS: ISOSORBIDE DIN. (ISORDIL) 20 MG TAB PO SCH ×3 (08:51→21:58)
[2023-08-28] MEDS: LACRILUBE (AKWA TEARS) OPHTH OINT 3.5GM OU SCH ×3 (08:51→21:56)
[2023-08-28] MEDS: SPIRONOLACTONE 25 MG TAB PO SCH ×2 (08:51→17:36)
[2023-08-28] MEDS: AMIODARONE 200 MG TAB (PACERONE) PO SCH (08:51)
[2023-08-28] MEDS ORDERED: POTASSIUM CHLORIDE 10MEQ SR TABLET PO ONE (15:00)
[2023-08-28] MEDS: DIAPER RELIEF PASTE (DESITIN) 60GM TOP SCH (15:58)
[2023-08-28] MEDS: SENOKOT S TAB PO SCH (21:00)
[2023-08-28] MEDS: LATANOPROST 0.005% OPHTH SOLN 2.5 ML OU SCH (21:56)
[2023-08-28] MEDS: ATORVASTATIN 20 MG TAB PO SCH (21:58)
[2023-08-29] VITALS (8 sets, daily range): BP systolic 122–154; BP diastolic 60–74; TEMP 96.6–98.1; O2SAT 95–100
[2023-08-29] MEDS: IPRATROPIUM 0.5MG/ALBUTEROL 2.5MG INH SOL UD 3ML (DUONEB) NEB SCH ×4 (01:06→20:13)
[2023-08-29] MEDS: HEPARIN SOD (PORCINE) 5000UNITS/ML 1ML VIAL/SYRINGE SC SCH ×2 (06:02→14:57)
[2023-08-29 06:20] LABS: BASO % 0.2 % (0.0-1.0); EOS % 0.3 % (0.0-3.0); HEMATOCRIT 31.2 % (42.0-52.0); HEMOGLOBIN 9.5 g/dl (13.5-17.5); LYMPH # 0.5 10^3/uL (1.5-5.0); LYMPH % 8.2 % (24.0-44.0); MEAN CORPUSCULAR HEMOGLOBIN 27.3 pg (27.0-33.0); MEAN CORPUSCULAR HGB CONC 30.4 g/dl (32.0-36.5); MEAN CORPUSCULAR VOLUME 89.7 fl (80.0-96.0); MONO # 0.6 10^3/uL (0.0-0.8); MONO % 9.9 % (2.0-8.0); NEUTROPHILS # 5.2 10^3/uL (1.5-8.5); PLATELET COUNT, AUTOMATED 143 10^3/uL (150-450); RED BLOOD COUNT 3.48 10^6/uL (4.30-6.10); WHITE BLOOD COUNT 6.5 10^3/uL (4.0-10.0)
[2023-08-29 06:50] LABS: ALBUMIN 2.3 G/DL (3.2-5.2); BILIRUBIN,TOTAL 0.4 MG/DL (0.3-1.2); CALCIUM LEVEL 8.7 MG/DL (8.5-10.1); CREATININE FOR GFR 2.04 MG/DL (0.70-1.30); GLOMERULAR FILTRATION RATE 35.8 (>56); MAGNESIUM LEVEL 1.7 MG/DL (1.8-2.4); PERCENT SATURATION 73.6 % (19.7-50.0); POTASSIUM SERUM 3.9 MMOL/L (3.5-5.1); TOTAL PROTEIN 5.3 G/DL (5.7-8.2)
[2023-08-29 06:53] LABS: FERRITIN 105.9 NG/ML (10.5-307.3)
[2023-08-29] MEDS: ADVAIR HFA 115/21MCG INHALER INH SCH ×2 (07:47→20:13)
[2023-08-29] MEDS: METOPROLOL TART 25 MG TABLET PO SCH ×2 (09:00→20:57)
[2023-08-29] MEDS: LEVEMIR (INSULIN DETEMIR) 1 UNITS/0.01ML SQ SCH ×2 (09:07→20:53)
[2023-08-29] MEDS: INSULIN LISPRO (NovoLOG) PER UNIT SC SCH ×4 (09:08→20:53)
[2023-08-29] MEDS: SPIRONOLACTONE 25 MG TAB PO SCH ×2 (09:14→17:15)
[2023-08-29] MEDS: LACTOBACILLUS ACIDOPHILUS CAP (BACID) PO SCH ×2 (09:14→17:30)
[2023-08-29] MEDS: VENLAFAXINE **XR** 75MG CAPSULE PO SCH (09:14)
[2023-08-29] MEDS: busPIRone 10 MG TAB PO SCH ×2 (09:15→20:54)
[2023-08-29] MEDS: TORSEMIDE (DEMADEX) 50 MG PER 1/2 TAB PO SCH ×2 (09:15→17:15)
[2023-08-29] MEDS: AMIODARONE 200 MG TAB (PACERONE) PO SCH (09:17)
[2023-08-29] MEDS: TAMSULOSIN 0.4 MG CAP PO SCH (09:17)
[2023-08-29] MEDS: ASPIRIN 81MG CHEW TABLET PO SCH (09:17)
[2023-08-29] MEDS: predniSONE 10MG TAB PO SCH (09:17)
[2023-08-29] MEDS: RANOLAZINE 500MG ER TAB PO SCH ×2 (09:17→20:54)
[2023-08-29] MEDS: **hydrALAZINE HCL** 25 MG TAB PO SCH ×3 (09:18→20:56)
[2023-08-29] MEDS: LACRILUBE (AKWA TEARS) OPHTH OINT 3.5GM OU SCH ×3 (09:20→20:54)
[2023-08-29] MEDS: DIAPER RELIEF PASTE (DESITIN) 60GM TOP SCH (09:20)
[2023-08-29] MEDS: ISOSORBIDE DIN. (ISORDIL) 20 MG TAB PO SCH ×3 (09:20→20:56)
[2023-08-29] MEDS: LATANOPROST 0.005% OPHTH SOLN 2.5 ML OU SCH (20:38)
[2023-08-29] MEDS: ATORVASTATIN 20 MG TAB PO SCH (20:55)
[2023-08-29] MEDS: SENOKOT S TAB PO SCH (20:55)
[2023-08-30] MEDS: HEPARIN SOD (PORCINE) 5000UNITS/ML 1ML VIAL/SYRINGE SC SCH ×4 (00:01→21:36)
[2023-08-30] MEDS: IPRATROPIUM 0.5MG/ALBUTEROL 2.5MG INH SOL UD 3ML (DUONEB) NEB SCH ×4 (01:17→20:25)
[2023-08-30 03:56] VITALS: BP 119/96; TEMP 96.6; O2SAT 95
[2023-08-30 06:12] LABS: HEMATOCRIT 33.2 % (42.0-52.0); HEMOGLOBIN 10.4 g/dl (13.5-17.5); MEAN CORPUSCULAR HEMOGLOBIN 28.3 pg (27.0-33.0); MEAN CORPUSCULAR HGB CONC 31.3 g/dl (32.0-36.5); MEAN CORPUSCULAR VOLUME 90.5 fl (80.0-96.0); PLATELET COUNT, AUTOMATED 153 10^3/uL (150-450); RED BLOOD COUNT 3.67 10^6/uL (4.30-6.10)
[2023-08-30 06:36] LABS: ALBUMIN 2.6 G/DL (3.2-5.2); ALKALINE PHOSPHATASE 62 U/L (46-116); ALT/SGPT 67 U/L (7.0-40); AST/SGOT 32 U/L (<34); BILIRUBIN,TOTAL 0.5 MG/DL (0.3-1.2); BLOOD UREA NITROGEN 81 MG/DL (9-23); CALCIUM LEVEL 8.7 MG/DL (8.5-10.1); CARBON DIOXIDE LEVEL > 40.0 MMOL/L (20-31); CHLORIDE LEVEL 95 MMOL/L (98-107); CREATININE FOR GFR 2.05 MG/DL (0.70-1.30); GLOMERULAR FILTRATION RATE 35.6 (>56); GLUCOSE, FASTING 84 MG/DL (60-100); MAGNESIUM LEVEL 1.8 MG/DL (1.8-2.4); POTASSIUM SERUM 4.2 MMOL/L (3.5-5.1); SODIUM LEVEL 141 MMOL/L (136-145); TOTAL PROTEIN 5.9 G/DL (5.7-8.2)
[2023-08-30 07:27] VITALS: BP 117/67; TEMP 97.9; O2SAT 100
[2023-08-30] MEDS: INSULIN LISPRO (NovoLOG) PER UNIT SC SCH ×4 (07:30→21:00)
[2023-08-30] MEDS: ADVAIR HFA 115/21MCG INHALER INH SCH ×2 (07:52→20:26)
[2023-08-30] MEDS: TAMSULOSIN 0.4 MG CAP PO SCH (09:29)
[2023-08-30] MEDS: SPIRONOLACTONE 25 MG TAB PO SCH ×2 (09:29→17:16)
[2023-08-30] MEDS: ASPIRIN 81MG CHEW TABLET PO SCH (09:29)
[2023-08-30] MEDS: LACTOBACILLUS ACIDOPHILUS CAP (BACID) PO SCH ×2 (09:29→17:17)
[2023-08-30] MEDS: RANOLAZINE 500MG ER TAB PO SCH ×2 (09:30→21:35)
[2023-08-30] MEDS: busPIRone 10 MG TAB PO SCH ×2 (09:30→21:35)
[2023-08-30] MEDS: AMIODARONE 200 MG TAB (PACERONE) PO SCH (09:30)
[2023-08-30] MEDS: MAGNESIUM OXIDE 400MG TAB (MAG-OX) PO SCH (09:30)
[2023-08-30] MEDS: LEVEMIR (INSULIN DETEMIR) 1 UNITS/0.01ML SQ SCH ×2 (09:31→21:37)
[2023-08-30] MEDS: predniSONE 10MG TAB PO SCH (09:31)
[2023-08-30] MEDS: VENLAFAXINE **XR** 75MG CAPSULE PO SCH (09:31)
[2023-08-30] MEDS: TORSEMIDE (DEMADEX) 50 MG PER 1/2 TAB PO SCH ×2 (09:31→17:16)
[2023-08-30] MEDS: **hydrALAZINE HCL** 25 MG TAB PO SCH ×3 (09:32→21:36)
[2023-08-30] MEDS: LACRILUBE (AKWA TEARS) OPHTH OINT 3.5GM OU SCH ×3 (09:33→21:38)
[2023-08-30] MEDS: DIAPER RELIEF PASTE (DESITIN) 60GM TOP SCH (09:34)
[2023-08-30] MEDS: ISOSORBIDE DIN. (ISORDIL) 20 MG TAB PO SCH ×3 (09:39→21:36)
[2023-08-30] MEDS: METOPROLOL TART 25 MG TABLET PO SCH ×2 (09:41→20:50)
[2023-08-30] MEDS: DARBEPOETIN 40MCG/0.4ML *NON-DIALYSIS* SYRINGE SQ SCH (11:25)
[2023-08-30 11:45] VITALS: BP 120/63; TEMP 97.9; O2SAT 97
[2023-08-30 14:00] VITALS: BP 128/69; TEMP 97.5; O2SAT 90
[2023-08-30 20:13] VITALS: BP 146/76; TEMP 98.4; O2SAT 92
[2023-08-30] MEDS: SENOKOT S TAB PO SCH (21:35)
[2023-08-30] MEDS: ATORVASTATIN 20 MG TAB PO SCH (21:36)
[2023-08-30] MEDS: LATANOPROST 0.005% OPHTH SOLN 2.5 ML OU SCH (21:38)
[2023-08-31] MEDS: IPRATROPIUM 0.5MG/ALBUTEROL 2.5MG INH SOL UD 3ML (DUONEB) NEB SCH ×4 (01:39→20:23)
[2023-08-31 05:51] VITALS: BP 145/76; TEMP 97.7; O2SAT 96
[2023-08-31] MEDS: HEPARIN SOD (PORCINE) 5000UNITS/ML 1ML VIAL/SYRINGE SC SCH ×3 (06:24→21:38)
[2023-08-31] MEDS: INSULIN LISPRO (NovoLOG) PER UNIT SC SCH ×4 (07:30→21:00)
[2023-08-31] MEDS: ADVAIR HFA 115/21MCG INHALER INH SCH ×2 (08:28→20:23)
[2023-08-31] MEDS: LEVEMIR (INSULIN DETEMIR) 1 UNITS/0.01ML SQ SCH ×2 (09:52→21:37)
[2023-08-31] MEDS: TAMSULOSIN 0.4 MG CAP PO SCH (09:55)
[2023-08-31] MEDS: MAGNESIUM OXIDE 400MG TAB (MAG-OX) PO SCH (09:56)
[2023-08-31] MEDS: VENLAFAXINE **XR** 75MG CAPSULE PO SCH (09:56)
[2023-08-31] MEDS: **hydrALAZINE HCL** 25 MG TAB PO SCH ×3 (09:56→21:39)
[2023-08-31] MEDS: METOPROLOL TART 25 MG TABLET PO SCH ×2 (09:57→21:00)
[2023-08-31] MEDS: SPIRONOLACTONE 25 MG TAB PO SCH ×2 (09:57→16:56)
[2023-08-31] MEDS: TORSEMIDE (DEMADEX) 50 MG PER 1/2 TAB PO SCH ×2 (09:57→16:54)
[2023-08-31] MEDS: RANOLAZINE 500MG ER TAB PO SCH ×2 (09:57→21:37)
[2023-08-31] MEDS: LACTOBACILLUS ACIDOPHILUS CAP (BACID) PO SCH ×2 (09:58→16:54)
[2023-08-31] MEDS: ISOSORBIDE DIN. (ISORDIL) 20 MG TAB PO SCH ×3 (09:58→21:39)
[2023-08-31] MEDS: busPIRone 10 MG TAB PO SCH ×2 (09:58→21:37)
[2023-08-31] MEDS: ASPIRIN 81MG CHEW TABLET PO SCH (09:58)
[2023-08-31] MEDS: predniSONE 10MG TAB PO SCH (09:59)
[2023-08-31] MEDS: LACRILUBE (AKWA TEARS) OPHTH OINT 3.5GM OU SCH ×3 (10:00→21:39)
[2023-08-31] MEDS: AMIODARONE 200 MG TAB (PACERONE) PO SCH (10:00)
[2023-08-31] MEDS: DIAPER RELIEF PASTE (DESITIN) 60GM TOP SCH (10:01)
[2023-08-31] MEDS ORDERED: TORS100T PO (10:50)
[2023-08-31] MEDS ORDERED: PRED20TA PO (10:50)
[2023-08-31] MEDS ORDERED: ASPI81CH8 PO (10:50)
[2023-08-31] MEDS ORDERED: ALDA25TA2 PO (10:50)
[2023-08-31] MEDS ORDERED: [UNRECOGNIZED DRUG - CODE] SQ (10:50)
[2023-08-31] MEDS ORDERED: INSUHUMDS SC ×2 (10:50)
[2023-08-31] MEDS ORDERED: HYDR25TA PO (10:50)
[2023-08-31] MEDS ORDERED: INSUDET SQ (10:50)
[2023-08-31 20:47] VITALS: BP 155/86; TEMP 97.9; O2SAT 94
[2023-08-31] MEDS: SENOKOT S TAB PO SCH (21:37)
[2023-08-31] MEDS: ATORVASTATIN 20 MG TAB PO SCH (21:37)
[2023-08-31] MEDS: LATANOPROST 0.005% OPHTH SOLN 2.5 ML OU SCH (21:40)
[2023-09-01] MEDS: IPRATROPIUM 0.5MG/ALBUTEROL 2.5MG INH SOL UD 3ML (DUONEB) NEB SCH ×4 (02:57→20:57)
[2023-09-01 05:48] VITALS: BP 153/72; TEMP 97.9; O2SAT 95
[2023-09-01] MEDS: HEPARIN SOD (PORCINE) 5000UNITS/ML 1ML VIAL/SYRINGE SC SCH ×3 (06:05→21:34)
[2023-09-01] MEDS: LEVEMIR (INSULIN DETEMIR) 1 UNITS/0.01ML SQ SCH ×2 (08:26→21:34)
[2023-09-01] MEDS: INSULIN LISPRO (NovoLOG) PER UNIT SC SCH ×4 (08:27→21:34)
[2023-09-01] MEDS: DIAPER RELIEF PASTE (DESITIN) 60GM TOP SCH (08:28)
[2023-09-01] MEDS: LACRILUBE (AKWA TEARS) OPHTH OINT 3.5GM OU SCH ×3 (08:28→21:34)
[2023-09-01] MEDS: MAGNESIUM OXIDE 400MG TAB (MAG-OX) PO SCH (08:29)
[2023-09-01] MEDS: LACTOBACILLUS ACIDOPHILUS CAP (BACID) PO SCH ×2 (08:29→17:07)
[2023-09-01] MEDS: ASPIRIN 81MG CHEW TABLET PO SCH (08:29)
[2023-09-01] MEDS: busPIRone 10 MG TAB PO SCH ×2 (08:29→21:33)
[2023-09-01] MEDS: predniSONE 10MG TAB PO SCH (08:29)
[2023-09-01] MEDS: RANOLAZINE 500MG ER TAB PO SCH ×2 (08:29→21:34)
[2023-09-01] MEDS: VENLAFAXINE **XR** 75MG CAPSULE PO SCH (08:29)
[2023-09-01] MEDS: **hydrALAZINE HCL** 25 MG TAB PO SCH ×3 (08:30→21:33)
[2023-09-01] MEDS: TAMSULOSIN 0.4 MG CAP PO SCH (08:31)
[2023-09-01] MEDS: METOPROLOL TART 25 MG TABLET PO SCH ×2 (08:31→21:32)
[2023-09-01] MEDS: SPIRONOLACTONE 25 MG TAB PO SCH ×2 (08:31→16:09)
[2023-09-01] MEDS: AMIODARONE 200 MG TAB (PACERONE) PO SCH (08:31)
[2023-09-01 08:33] LABS: HEMATOCRIT 33.8 % (42.0-52.0); HEMOGLOBIN 10.8 g/dl (13.5-17.5); MEAN CORPUSCULAR HEMOGLOBIN 28.5 pg (27.0-33.0); MEAN CORPUSCULAR VOLUME 89.2 fl (80.0-96.0); PLATELET COUNT, AUTOMATED 168 10^3/uL (150-450); RED BLOOD COUNT 3.79 10^6/uL (4.30-6.10); WHITE BLOOD COUNT 9.1 10^3/uL (4.0-10.0)
[2023-09-01 08:51] VITALS: O2SAT 91
[2023-09-01] MEDS: ADVAIR HFA 115/21MCG INHALER INH SCH ×2 (08:51→20:57)
[2023-09-01 08:57] LABS: ALBUMIN 2.5 G/DL (3.2-5.2); BILIRUBIN,TOTAL 0.5 MG/DL (0.3-1.2); CALCIUM LEVEL 8.7 MG/DL (8.5-10.1); CREATININE FOR GFR 2.07 MG/DL (0.70-1.30); GLOMERULAR FILTRATION RATE 35.2 (>56); POTASSIUM SERUM 4.6 MMOL/L (3.5-5.1); TOTAL PROTEIN 5.8 G/DL (5.7-8.2)
[2023-09-01] MEDS: TORSEMIDE (DEMADEX) 50 MG PER 1/2 TAB PO SCH ×2 (10:47→16:08)
[2023-09-01] MEDS: ISOSORBIDE DIN. (ISORDIL) 20 MG TAB PO SCH ×3 (10:48→21:33)
[2023-09-01 13:34] VITALS: O2SAT 96
[2023-09-01 20:10] VITALS: BP 139/75; TEMP 97; O2SAT 92
[2023-09-01] MEDS: ATORVASTATIN 20 MG TAB PO SCH (21:33)
[2023-09-01] MEDS: SENOKOT S TAB PO SCH (21:33)
[2023-09-01] MEDS: LATANOPROST 0.005% OPHTH SOLN 2.5 ML OU SCH (21:34)
[2023-09-02] MEDS: IPRATROPIUM 0.5MG/ALBUTEROL 2.5MG INH SOL UD 3ML (DUONEB) NEB SCH ×4 (01:16→20:41)
[2023-09-02 05:28] VITALS: BP 163/84; TEMP 97.7; O2SAT 97
[2023-09-02] MEDS: HEPARIN SOD (PORCINE) 5000UNITS/ML 1ML VIAL/SYRINGE SC SCH ×3 (05:32→20:50)
[2023-09-02] MEDS: INSULIN LISPRO (NovoLOG) PER UNIT SC SCH ×4 (07:30→20:50)
[2023-09-02] MEDS: LACTOBACILLUS ACIDOPHILUS CAP (BACID) PO SCH ×2 (08:00→18:00)
[2023-09-02] MEDS: ADVAIR HFA 115/21MCG INHALER INH SCH ×2 (08:09→20:41)
[2023-09-02] MEDS: ASPIRIN 81MG CHEW TABLET PO SCH (09:00)
[2023-09-02] MEDS: METOPROLOL TART 25 MG TABLET PO SCH ×2 (09:00→20:49)
[2023-09-02] MEDS: busPIRone 10 MG TAB PO SCH ×2 (09:00→20:52)
[2023-09-02] MEDS: predniSONE 10MG TAB PO SCH (09:00)
[2023-09-02] MEDS: SPIRONOLACTONE 25 MG TAB PO SCH ×2 (09:00→16:49)
[2023-09-02] MEDS: VENLAFAXINE **XR** 75MG CAPSULE PO SCH (09:00)
[2023-09-02] MEDS: TAMSULOSIN 0.4 MG CAP PO SCH (09:00)
[2023-09-02] MEDS: LACRILUBE (AKWA TEARS) OPHTH OINT 3.5GM OU SCH ×3 (09:00→20:50)
[2023-09-02] MEDS: LEVEMIR (INSULIN DETEMIR) 1 UNITS/0.01ML SQ SCH ×2 (09:00→20:50)
[2023-09-02] MEDS: AMIODARONE 200 MG TAB (PACERONE) PO SCH (09:00)
[2023-09-02] MEDS: TORSEMIDE (DEMADEX) 50 MG PER 1/2 TAB PO SCH ×2 (09:00→16:50)
[2023-09-02] MEDS: RANOLAZINE 500MG ER TAB PO SCH ×2 (09:00→20:49)
[2023-09-02] MEDS: ISOSORBIDE DIN. (ISORDIL) 20 MG TAB PO SCH ×3 (09:00→20:49)
[2023-09-02] MEDS: MAGNESIUM OXIDE 400MG TAB (MAG-OX) PO SCH (09:00)
[2023-09-02] MEDS: DIAPER RELIEF PASTE (DESITIN) 60GM TOP SCH (09:00)
[2023-09-02] MEDS: **hydrALAZINE HCL** 25 MG TAB PO SCH ×3 (09:00→20:48)
[2023-09-02] MEDS: ATORVASTATIN 20 MG TAB PO SCH (20:49)
[2023-09-02] MEDS: SENOKOT S TAB PO SCH (20:49)
[2023-09-02] MEDS: LATANOPROST 0.005% OPHTH SOLN 2.5 ML OU SCH (20:50)
[2023-09-03] MEDS: IPRATROPIUM 0.5MG/ALBUTEROL 2.5MG INH SOL UD 3ML (DUONEB) NEB SCH ×4 (01:27→20:33)
[2023-09-03 05:28] VITALS: BP 146/93; TEMP 97.9; O2SAT 95
[2023-09-03] MEDS: HEPARIN SOD (PORCINE) 5000UNITS/ML 1ML VIAL/SYRINGE SC SCH ×3 (06:00→22:00)
[2023-09-03] MEDS: ADVAIR HFA 115/21MCG INHALER INH SCH ×2 (08:08→20:32)
[2023-09-03] MEDS: AMIODARONE 200 MG TAB (PACERONE) PO SCH (08:20)
[2023-09-03] MEDS: TAMSULOSIN 0.4 MG CAP PO SCH (08:21)
[2023-09-03] MEDS: LACTOBACILLUS ACIDOPHILUS CAP (BACID) PO SCH ×2 (08:21→17:13)
[2023-09-03] MEDS: MAGNESIUM OXIDE 400MG TAB (MAG-OX) PO SCH (08:21)
[2023-09-03] MEDS: ASPIRIN 81MG CHEW TABLET PO SCH (08:21)
[2023-09-03] MEDS: VENLAFAXINE **XR** 75MG CAPSULE PO SCH (08:21)
[2023-09-03] MEDS: ISOSORBIDE DIN. (ISORDIL) 20 MG TAB PO SCH ×3 (08:22→21:59)
[2023-09-03] MEDS: predniSONE 10MG TAB PO SCH (08:22)
[2023-09-03] MEDS: RANOLAZINE 500MG ER TAB PO SCH ×2 (08:22→21:59)
[2023-09-03] MEDS: TORSEMIDE (DEMADEX) 50 MG PER 1/2 TAB PO SCH ×2 (08:22→17:13)
[2023-09-03] MEDS: SPIRONOLACTONE 25 MG TAB PO SCH ×2 (08:23→17:13)
[2023-09-03] MEDS: METOPROLOL TART 25 MG TABLET PO SCH ×2 (08:23→22:00)
[2023-09-03] MEDS: **hydrALAZINE HCL** 25 MG TAB PO SCH ×3 (08:23→21:59)
[2023-09-03] MEDS: busPIRone 10 MG TAB PO SCH ×2 (08:23→22:00)
[2023-09-03] MEDS: INSULIN LISPRO (NovoLOG) PER UNIT SC SCH ×4 (08:24→21:00)
[2023-09-03] MEDS: LEVEMIR (INSULIN DETEMIR) 1 UNITS/0.01ML SQ SCH ×2 (08:24→22:01)
[2023-09-03] MEDS: LACRILUBE (AKWA TEARS) OPHTH OINT 3.5GM OU SCH ×3 (08:29→22:01)
[2023-09-03] MEDS: DIAPER RELIEF PASTE (DESITIN) 60GM TOP SCH (08:29)
[2023-09-03 17:26] LABS: HEMATOCRIT 33.6 % (42.0-52.0); HEMOGLOBIN 10.7 g/dl (13.5-17.5); MEAN CORPUSCULAR HEMOGLOBIN 28.4 pg (27.0-33.0); MEAN CORPUSCULAR HGB CONC 31.8 g/dl (32.0-36.5); MEAN CORPUSCULAR VOLUME 89.1 fl (80.0-96.0); PLATELET COUNT, AUTOMATED 177 10^3/uL (150-450); RED BLOOD COUNT 3.77 10^6/uL (4.30-6.10); WHITE BLOOD COUNT 13.1 10^3/uL (4.0-10.0)
[2023-09-03 17:53] LABS: ALBUMIN 2.5 G/DL (3.2-5.2); BILIRUBIN,TOTAL 0.5 MG/DL (0.3-1.2); CALCIUM LEVEL 8.2 MG/DL (8.5-10.1); CREATININE FOR GFR 2.28 MG/DL (0.70-1.30); GLOMERULAR FILTRATION RATE 31.5 (>56); MAGNESIUM LEVEL 2.2 MG/DL (1.8-2.4); POTASSIUM SERUM 5.3 MMOL/L (3.5-5.1); TOTAL PROTEIN 5.7 G/DL (5.7-8.2)
[2023-09-03] MEDS: SENOKOT S TAB PO SCH (21:59)
[2023-09-03] MEDS: ATORVASTATIN 20 MG TAB PO SCH (21:59)
[2023-09-03] MEDS: LATANOPROST 0.005% OPHTH SOLN 2.5 ML OU SCH (22:01)
[2023-09-04] MEDS: IPRATROPIUM 0.5MG/ALBUTEROL 2.5MG INH SOL UD 3ML (DUONEB) NEB SCH ×5 (01:17→23:55)
[2023-09-04] MEDS: HEPARIN SOD (PORCINE) 5000UNITS/ML 1ML VIAL/SYRINGE SC SCH ×3 (05:42→22:01)
[2023-09-04 05:58] VITALS: BP 128/82; TEMP 97.5; O2SAT 91
[2023-09-04] MEDS: INSULIN LISPRO (NovoLOG) PER UNIT SC SCH ×4 (07:30→21:00)
[2023-09-04] MEDS: busPIRone 10 MG TAB PO SCH ×2 (09:00→21:59)
[2023-09-04] MEDS: RANOLAZINE 500MG ER TAB PO SCH ×2 (09:00→22:00)
[2023-09-04] MEDS: TAMSULOSIN 0.4 MG CAP PO SCH (09:01)
[2023-09-04] MEDS: TORSEMIDE (DEMADEX) 50 MG PER 1/2 TAB PO SCH ×2 (09:01→17:17)
[2023-09-04] MEDS: ASPIRIN 81MG CHEW TABLET PO SCH (09:01)
[2023-09-04] MEDS: LACTOBACILLUS ACIDOPHILUS CAP (BACID) PO SCH ×2 (09:01→17:17)
[2023-09-04] MEDS: ISOSORBIDE DIN. (ISORDIL) 20 MG TAB PO SCH ×3 (09:02→22:00)
[2023-09-04] MEDS: **hydrALAZINE HCL** 25 MG TAB PO SCH ×3 (09:02→22:00)
[2023-09-04] MEDS: AMIODARONE 200 MG TAB (PACERONE) PO SCH (09:02)
[2023-09-04] MEDS: MAGNESIUM OXIDE 400MG TAB (MAG-OX) PO SCH (09:02)
[2023-09-04] MEDS: METOPROLOL TART 25 MG TABLET PO SCH ×2 (09:03→22:00)
[2023-09-04] MEDS: VENLAFAXINE **XR** 75MG CAPSULE PO SCH (09:03)
[2023-09-04] MEDS: LACRILUBE (AKWA TEARS) OPHTH OINT 3.5GM OU SCH ×3 (09:04→22:01)
[2023-09-04] MEDS: DIAPER RELIEF PASTE (DESITIN) 60GM TOP SCH (09:05)
[2023-09-04] MEDS: LEVEMIR (INSULIN DETEMIR) 1 UNITS/0.01ML SQ SCH ×2 (09:06→22:00)
[2023-09-04] MEDS: ADVAIR HFA 115/21MCG INHALER INH SCH ×2 (09:26→19:59)
[2023-09-04] MEDS: ONDANSETRON 4MG TAB PO PRN (14:25)
[2023-09-04 21:44] VITALS: BP 134/73; TEMP 97.9; O2SAT 90
[2023-09-04] MEDS: ATORVASTATIN 20 MG TAB PO SCH (21:59)
[2023-09-04] MEDS: SENOKOT S TAB PO SCH (21:59)
[2023-09-04] MEDS: LATANOPROST 0.005% OPHTH SOLN 2.5 ML OU SCH (22:01)
[2023-09-05] MEDS: HEPARIN SOD (PORCINE) 5000UNITS/ML 1ML VIAL/SYRINGE SC SCH ×3 (05:24→21:36)
[2023-09-05 06:00] VITALS: BP 118/70; TEMP 98.1; O2SAT 90
[2023-09-05 07:06] LABS: HEMATOCRIT 33.4 % (42.0-52.0); HEMOGLOBIN 10.8 g/dl (13.5-17.5); MEAN CORPUSCULAR HGB CONC 32.3 g/dl (32.0-36.5); MEAN CORPUSCULAR VOLUME 89.5 fl (80.0-96.0); PLATELET COUNT, AUTOMATED 162 10^3/uL (150-450); RED BLOOD COUNT 3.73 10^6/uL (4.30-6.10)
[2023-09-05 07:28] LABS: CALCIUM LEVEL 8.2 MG/DL (8.5-10.1); CREATININE FOR GFR 2.83 MG/DL (0.70-1.30); GLOMERULAR FILTRATION RATE 24.5 (>56); POTASSIUM SERUM 4.8 MMOL/L (3.5-5.1)
[2023-09-05] MEDS: LEVEMIR (INSULIN DETEMIR) 1 UNITS/0.01ML SQ SCH ×2 (08:26→21:00)
[2023-09-05] MEDS: INSULIN LISPRO (NovoLOG) PER UNIT SC SCH ×4 (08:27→21:00)
[2023-09-05] MEDS: MAGNESIUM OXIDE 400MG TAB (MAG-OX) PO SCH (08:27)
[2023-09-05] MEDS: TAMSULOSIN 0.4 MG CAP PO SCH (08:27)
[2023-09-05] MEDS: LACTOBACILLUS ACIDOPHILUS CAP (BACID) PO SCH ×2 (08:29→18:17)
[2023-09-05] MEDS: TORSEMIDE (DEMADEX) 50 MG PER 1/2 TAB PO SCH ×2 (08:29→16:32)
[2023-09-05] MEDS: busPIRone 10 MG TAB PO SCH ×2 (08:29→21:37)
[2023-09-05] MEDS: ASPIRIN 81MG CHEW TABLET PO SCH (08:29)
[2023-09-05] MEDS: RANOLAZINE 500MG ER TAB PO SCH ×2 (08:29→21:36)
[2023-09-05] MEDS: VENLAFAXINE **XR** 75MG CAPSULE PO SCH (08:30)
[2023-09-05] MEDS: AMIODARONE 200 MG TAB (PACERONE) PO SCH (08:30)
[2023-09-05] MEDS: ISOSORBIDE DIN. (ISORDIL) 20 MG TAB PO SCH ×3 (08:30→21:37)
[2023-09-05] MEDS: METOPROLOL TART 25 MG TABLET PO SCH ×2 (08:31→21:00)
[2023-09-05] MEDS: **hydrALAZINE HCL** 25 MG TAB PO SCH ×3 (08:31→21:37)
[2023-09-05] MEDS: LACRILUBE (AKWA TEARS) OPHTH OINT 3.5GM OU SCH ×3 (08:32→21:42)
[2023-09-05] MEDS: DIAPER RELIEF PASTE (DESITIN) 60GM TOP SCH (08:33)
[2023-09-05] MEDS: IPRATROPIUM 0.5MG/ALBUTEROL 2.5MG INH SOL UD 3ML (DUONEB) NEB SCH ×3 (08:56→19:39)
[2023-09-05] MEDS: ADVAIR HFA 115/21MCG INHALER INH SCH ×2 (08:58→19:38)
[2023-09-05] MEDS: ONDANSETRON 4MG TAB PO PRN (18:17)
[2023-09-05 20:42] VITALS: BP 122/68; TEMP 97.5; O2SAT 91
[2023-09-05] MEDS: ATORVASTATIN 20 MG TAB PO SCH (21:37)
[2023-09-05] MEDS: SENOKOT S TAB PO SCH (21:37)
[2023-09-05] MEDS: LATANOPROST 0.005% OPHTH SOLN 2.5 ML OU SCH (21:42)
[2023-09-05 22:00] VITALS: O2SAT 95
[2023-09-06] MEDS: IPRATROPIUM 0.5MG/ALBUTEROL 2.5MG INH SOL UD 3ML (DUONEB) NEB SCH ×4 (03:27→18:52)
[2023-09-06 05:44] VITALS: BP 147/73; TEMP 97.5; O2SAT 94
[2023-09-06] MEDS: HEPARIN SOD (PORCINE) 5000UNITS/ML 1ML VIAL/SYRINGE SC SCH ×3 (06:06→21:34)
[2023-09-06] MEDS: ADVAIR HFA 115/21MCG INHALER INH SCH ×2 (06:18→18:53)
[2023-09-06] MEDS: INSULIN LISPRO (NovoLOG) PER UNIT SC SCH ×4 (07:30→21:00)
[2023-09-06] MEDS: TORSEMIDE (DEMADEX) 50 MG PER 1/2 TAB PO SCH ×2 (08:26→16:32)
[2023-09-06] MEDS: ASPIRIN 81MG CHEW TABLET PO SCH (08:26)
[2023-09-06] MEDS: busPIRone 10 MG TAB PO SCH ×2 (08:28→21:33)
[2023-09-06] MEDS: ISOSORBIDE DIN. (ISORDIL) 20 MG TAB PO SCH ×3 (08:29→21:33)
[2023-09-06] MEDS: MAGNESIUM OXIDE 400MG TAB (MAG-OX) PO SCH (08:29)
[2023-09-06] MEDS: AMIODARONE 200 MG TAB (PACERONE) PO SCH (08:30)
[2023-09-06] MEDS: VENLAFAXINE **XR** 75MG CAPSULE PO SCH (08:30)
[2023-09-06] MEDS: **hydrALAZINE HCL** 25 MG TAB PO SCH ×3 (08:30→21:33)
[2023-09-06] MEDS: METOPROLOL TART 25 MG TABLET PO SCH ×2 (08:30→21:34)
[2023-09-06] MEDS: TAMSULOSIN 0.4 MG CAP PO SCH (08:30)
[2023-09-06] MEDS: LEVEMIR (INSULIN DETEMIR) 1 UNITS/0.01ML SQ SCH ×2 (08:31→21:34)
[2023-09-06] MEDS: DIAPER RELIEF PASTE (DESITIN) 60GM TOP SCH (08:32)
[2023-09-06] MEDS: LACRILUBE (AKWA TEARS) OPHTH OINT 3.5GM OU SCH ×3 (08:32→21:34)
[2023-09-06] MEDS: LACTOBACILLUS ACIDOPHILUS CAP (BACID) PO SCH ×2 (08:52→18:33)
[2023-09-06] MEDS: RANOLAZINE 500MG ER TAB PO SCH ×2 (10:10→21:34)
[2023-09-06 13:50] VITALS: O2SAT 95
[2023-09-06 13:55] VITALS: BP 137/78; TEMP 97.9; O2SAT 96
[2023-09-06] MEDS: ONDANSETRON 4MG TAB PO PRN (16:31)
[2023-09-06 18:53] VITALS: O2SAT 95
[2023-09-06 20:56] VITALS: BP 138/80; TEMP 97.5; O2SAT 92
[2023-09-06] MEDS: ATORVASTATIN 20 MG TAB PO SCH (21:33)
[2023-09-06] MEDS: LATANOPROST 0.005% OPHTH SOLN 2.5 ML OU SCH (21:34)
[2023-09-06] MEDS: SENOKOT S TAB PO SCH (21:34)
[2023-09-06] MEDS: PANTOPRAZOLE 40MG TAB (PROTONIX) PO SCH (21:34)
[2023-09-07] MEDS: IPRATROPIUM 0.5MG/ALBUTEROL 2.5MG INH SOL UD 3ML (DUONEB) NEB SCH ×4 (02:00→17:53)
[2023-09-07 05:38] VITALS: BP 141/89; TEMP 97.5; O2SAT 96
[2023-09-07] MEDS: HEPARIN SOD (PORCINE) 5000UNITS/ML 1ML VIAL/SYRINGE SC SCH ×3 (05:40→21:48)
[2023-09-07 08:15] VITALS: BP 143/88; TEMP 97.3; O2SAT 97
[2023-09-07] MEDS: LEVEMIR (INSULIN DETEMIR) 1 UNITS/0.01ML SQ SCH ×2 (08:19→22:00)
[2023-09-07] MEDS: INSULIN LISPRO (NovoLOG) PER UNIT SC SCH ×4 (08:19→21:00)
[2023-09-07] MEDS: ADVAIR HFA 115/21MCG INHALER INH SCH ×2 (08:24→17:54)
[2023-09-07] MEDS: ASPIRIN 81MG CHEW TABLET PO SCH (08:53)
[2023-09-07] MEDS: RANOLAZINE 500MG ER TAB PO SCH ×2 (08:53→21:58)
[2023-09-07] MEDS: LACTOBACILLUS ACIDOPHILUS CAP (BACID) PO SCH ×2 (08:53→17:02)
[2023-09-07] MEDS: **hydrALAZINE HCL** 25 MG TAB PO SCH ×3 (08:54→21:50)
[2023-09-07] MEDS: busPIRone 10 MG TAB PO SCH ×2 (08:58→21:48)
[2023-09-07] MEDS: PANTOPRAZOLE 40MG TAB (PROTONIX) PO SCH ×2 (08:58→21:58)
[2023-09-07] MEDS: ISOSORBIDE DIN. (ISORDIL) 20 MG TAB PO SCH ×3 (08:59→21:58)
[2023-09-07] MEDS: AMIODARONE 200 MG TAB (PACERONE) PO SCH (09:01)
[2023-09-07] MEDS: METOPROLOL TART 25 MG TABLET PO SCH ×2 (09:01→21:59)
[2023-09-07] MEDS: MAGNESIUM OXIDE 400MG TAB (MAG-OX) PO SCH (09:01)
[2023-09-07] MEDS: VENLAFAXINE **XR** 75MG CAPSULE PO SCH (09:10)
[2023-09-07] MEDS: TORSEMIDE (DEMADEX) 50 MG PER 1/2 TAB PO SCH ×2 (09:10→17:02)
[2023-09-07] MEDS: TAMSULOSIN 0.4 MG CAP PO SCH (09:11)
[2023-09-07] MEDS: LACRILUBE (AKWA TEARS) OPHTH OINT 3.5GM OU SCH ×3 (09:12→21:52)
[2023-09-07] MEDS: DIAPER RELIEF PASTE (DESITIN) 60GM TOP SCH (09:17)
[2023-09-07 14:00] VITALS: BP 137/67; TEMP 97.7; O2SAT 95
[2023-09-07 17:13] LABS: BASO % 0.4 % (0.0-1.0); EOS # 0.1 10^3/uL (0.0-0.5); EOS % 1.3 % (0.0-3.0); HEMOGLOBIN 10.9 g/dl (13.5-17.5); LYMPH # 0.5 10^3/uL (1.5-5.0); LYMPH % 4.4 % (24.0-44.0); MEAN CORPUSCULAR HEMOGLOBIN 28.5 pg (27.0-33.0); MEAN CORPUSCULAR HGB CONC 32.1 g/dl (32.0-36.5); MONO # 0.7 10^3/uL (0.0-0.8); MONO % 6.6 % (2.0-8.0); NEUTROPHILS # 8.9 10^3/uL (1.5-8.5); NEUTROPHILS % 86.5 % (36.0-66.0); PLATELET COUNT, AUTOMATED 147 10^3/uL (150-450); RED BLOOD COUNT 3.82 10^6/uL (4.30-6.10); WHITE BLOOD COUNT 10.3 10^3/uL (4.0-10.0)
[2023-09-07 17:36] LABS: C REACTIVE PROTEIN QUANTITATIV 1.6 MG/DL (<1.0)
[2023-09-07 17:37] LABS: CALCIUM LEVEL 8.3 MG/DL (8.5-10.1); CREATININE FOR GFR 2.84 MG/DL (0.70-1.30); GLOMERULAR FILTRATION RATE 24.4 (>56); MAGNESIUM LEVEL 2.5 MG/DL (1.8-2.4); POTASSIUM SERUM 4.4 MMOL/L (3.5-5.1)
[2023-09-07 20:00] VITALS: BP 142/72; TEMP 97.9; O2SAT 96
[2023-09-07] MEDS: SENOKOT S TAB PO SCH (21:49)
[2023-09-07] MEDS: ATORVASTATIN 20 MG TAB PO SCH (21:49)
[2023-09-07] MEDS: BISACODYL 10MG SUPP PR SCH (21:50)
[2023-09-07] MEDS: LATANOPROST 0.005% OPHTH SOLN 2.5 ML OU SCH (21:52)
[2023-09-08] MEDS: IPRATROPIUM 0.5MG/ALBUTEROL 2.5MG INH SOL UD 3ML (DUONEB) NEB SCH ×2 (01:09→08:58)
[2023-09-08 05:51] VITALS: BP 135/73; TEMP 97.9; O2SAT 96
[2023-09-08] MEDS: HEPARIN SOD (PORCINE) 5000UNITS/ML 1ML VIAL/SYRINGE SC SCH ×3 (06:44→22:40)
[2023-09-08] MEDS: INSULIN LISPRO (NovoLOG) PER UNIT SC SCH ×4 (07:30→22:21)
[2023-09-08] MEDS: LACTOBACILLUS ACIDOPHILUS CAP (BACID) PO SCH ×2 (08:00→17:44)
[2023-09-08] MEDS: ONDANSETRON 4MG TAB PO PRN (08:17)
[2023-09-08] MEDS: ADVAIR HFA 115/21MCG INHALER INH SCH ×2 (08:57→20:25)
[2023-09-08] MEDS: LACRILUBE (AKWA TEARS) OPHTH OINT 3.5GM OU SCH ×3 (09:00→22:40)
[2023-09-08] MEDS: DIAPER RELIEF PASTE (DESITIN) 60GM TOP SCH (09:00)
[2023-09-08] MEDS: BISACODYL 10MG SUPP PR SCH ×2 (09:00→22:40)
[2023-09-08] MEDS: AMIODARONE 200 MG TAB (PACERONE) PO SCH (10:46)
[2023-09-08] MEDS: busPIRone 10 MG TAB PO SCH ×2 (10:47→22:38)
[2023-09-08] MEDS: ISOSORBIDE DIN. (ISORDIL) 20 MG TAB PO SCH ×3 (10:47→22:39)
[2023-09-08] MEDS: TAMSULOSIN 0.4 MG CAP PO SCH (10:47)
[2023-09-08] MEDS: **hydrALAZINE HCL** 25 MG TAB PO SCH ×3 (10:47→22:38)
[2023-09-08] MEDS: PANTOPRAZOLE 40MG TAB (PROTONIX) PO SCH ×2 (10:47→22:39)
[2023-09-08] MEDS: TORSEMIDE (DEMADEX) 50 MG PER 1/2 TAB PO SCH ×2 (10:48→17:43)
[2023-09-08] MEDS: METOPROLOL TART 25 MG TABLET PO SCH ×2 (10:48→22:39)
[2023-09-08] MEDS: RANOLAZINE 500MG ER TAB PO SCH ×2 (10:48→22:39)
[2023-09-08] MEDS: VENLAFAXINE **XR** 75MG CAPSULE PO SCH (10:48)
[2023-09-08] MEDS: ASPIRIN 81MG CHEW TABLET PO SCH (10:48)
[2023-09-08] MEDS: LEVEMIR (INSULIN DETEMIR) 1 UNITS/0.01ML SQ SCH ×2 (10:49→22:39)
[2023-09-08 14:00] VITALS: BP 150/77; TEMP 98.1; O2SAT 97
[2023-09-08 22:07] VITALS: BP 145/74; TEMP 97.9; O2SAT 96
[2023-09-08] MEDS: SENOKOT S TAB PO SCH (22:39)
[2023-09-08] MEDS: ATORVASTATIN 20 MG TAB PO SCH (22:39)
[2023-09-08] MEDS: LATANOPROST 0.005% OPHTH SOLN 2.5 ML OU SCH (22:40)
[2023-09-09] MEDS: HEPARIN SOD (PORCINE) 5000UNITS/ML 1ML VIAL/SYRINGE SC SCH ×3 (05:11→22:00)
[2023-09-09 05:38] VITALS: BP 142/75; TEMP 97.7; O2SAT 98
[2023-09-09 06:26] LABS: BASO # 0.1 10^3/uL (0.0-0.2); BASO % 0.5 % (0.0-1.0); EOS # 0.1 10^3/uL (0.0-0.5); EOS % 1.2 % (0.0-3.0); HEMATOCRIT 35.2 % (42.0-52.0); HEMOGLOBIN 11.5 g/dl (13.5-17.5); LYMPH # 0.6 10^3/uL (1.5-5.0); LYMPH % 5.3 % (24.0-44.0); MEAN CORPUSCULAR HGB CONC 32.7 g/dl (32.0-36.5); MEAN CORPUSCULAR VOLUME 88.7 fl (80.0-96.0); MONO # 0.8 10^3/uL (0.0-0.8); MONO % 6.9 % (2.0-8.0); NEUTROPHILS # 9.5 10^3/uL (1.5-8.5); NEUTROPHILS % 85.5 % (36.0-66.0); PLATELET COUNT, AUTOMATED 138 10^3/uL (150-450); RED BLOOD COUNT 3.97 10^6/uL (4.30-6.10); WHITE BLOOD COUNT 11.1 10^3/uL (4.0-10.0)
[2023-09-09] MEDS ORDERED: NS 1,000 ML IV ONE (06:40)
[2023-09-09 06:55] LABS: C REACTIVE PROTEIN QUANTITATIV 5.7 MG/DL (<1.0)
[2023-09-09] MEDS: INSULIN LISPRO (NovoLOG) PER UNIT SC SCH ×4 (07:30→21:00)
[2023-09-09] MEDS: ADVAIR HFA 115/21MCG INHALER INH SCH ×2 (08:00→21:29)
[2023-09-09] MEDS: DIAPER RELIEF PASTE (DESITIN) 60GM TOP SCH (09:00)
[2023-09-09] MEDS: BISACODYL 10MG SUPP PR SCH ×3 (09:00→22:00)
[2023-09-09] MEDS: LEVEMIR (INSULIN DETEMIR) 1 UNITS/0.01ML SQ SCH ×2 (09:00→22:00)
[2023-09-09] MEDS: RANOLAZINE 500MG ER TAB PO SCH ×2 (10:00→21:59)
[2023-09-09] MEDS: busPIRone 10 MG TAB PO SCH ×2 (10:00→21:59)
[2023-09-09] MEDS: LACTOBACILLUS ACIDOPHILUS CAP (BACID) PO SCH ×2 (10:00→18:00)
[2023-09-09] MEDS: PANTOPRAZOLE 40MG TAB (PROTONIX) PO SCH ×2 (10:01→21:59)
[2023-09-09] MEDS: CEFDINIR 300 MG CAP (OMNICEF) PO SCH (10:01)
[2023-09-09] MEDS: ASPIRIN 81MG CHEW TABLET PO SCH (10:01)
[2023-09-09] MEDS: **hydrALAZINE HCL** 25 MG TAB PO SCH ×3 (10:01→21:59)
[2023-09-09] MEDS: VENLAFAXINE **XR** 75MG CAPSULE PO SCH (10:01)
[2023-09-09] MEDS: METOPROLOL TART 25 MG TABLET PO SCH ×2 (10:02→21:59)
[2023-09-09] MEDS: ISOSORBIDE DIN. (ISORDIL) 20 MG TAB PO SCH ×3 (10:02→21:59)
[2023-09-09] MEDS: TAMSULOSIN 0.4 MG CAP PO SCH (10:02)
[2023-09-09] MEDS: LACRILUBE (AKWA TEARS) OPHTH OINT 3.5GM OU SCH ×3 (10:03→22:00)
[2023-09-09] MEDS: AMIODARONE 200 MG TAB (PACERONE) PO SCH (10:03)
[2023-09-09 13:45] LABS: CALCIUM LEVEL 8.3 MG/DL (8.5-10.1); CREATININE FOR GFR 2.54 MG/DL (0.70-1.30); GLOMERULAR FILTRATION RATE 27.8 (>56); POTASSIUM SERUM 4.2 MMOL/L (3.5-5.1)
[2023-09-09 14:00] VITALS: BP 163/86; TEMP 97.2; O2SAT 65
[2023-09-09] MEDS ORDERED: MAGNESIUM CITRATE 300ML BTL PO ONE (14:00)
[2023-09-09 20:10] VITALS: BP 152/81; TEMP 97.2; O2SAT 100
[2023-09-09] MEDS: ATORVASTATIN 20 MG TAB PO SCH (21:59)
[2023-09-09] MEDS: SENOKOT S TAB PO SCH (21:59)
[2023-09-09] MEDS: LATANOPROST 0.005% OPHTH SOLN 2.5 ML OU SCH (22:00)
[2023-09-10 06:06] VITALS: BP 130/98; TEMP 97.7; O2SAT 98
[2023-09-10] MEDS: HEPARIN SOD (PORCINE) 5000UNITS/ML 1ML VIAL/SYRINGE SC SCH ×3 (06:07→22:46)
[2023-09-10] MEDS: INSULIN LISPRO (NovoLOG) PER UNIT SC SCH ×4 (07:30→20:53)
[2023-09-10] MEDS: ADVAIR HFA 115/21MCG INHALER INH SCH ×2 (07:46→20:00)
[2023-09-10 08:51] VITALS: BP 137/73
[2023-09-10] MEDS: BISACODYL 10MG SUPP PR SCH ×2 (09:00→20:53)
[2023-09-10] MEDS: LACTOBACILLUS ACIDOPHILUS CAP (BACID) PO SCH ×2 (09:00→18:20)
[2023-09-10] MEDS: busPIRone 10 MG TAB PO SCH ×2 (09:01→20:50)
[2023-09-10] MEDS: METOPROLOL TART 25 MG TABLET PO SCH ×2 (09:01→20:50)
[2023-09-10] MEDS: ASPIRIN 81MG CHEW TABLET PO SCH (09:01)
[2023-09-10] MEDS: AMIODARONE 200 MG TAB (PACERONE) PO SCH (09:01)
[2023-09-10] MEDS: TAMSULOSIN 0.4 MG CAP PO SCH (09:01)
[2023-09-10] MEDS: CEFDINIR 300 MG CAP (OMNICEF) PO SCH (09:01)
[2023-09-10] MEDS: RANOLAZINE 500MG ER TAB PO SCH ×2 (09:01→20:51)
[2023-09-10] MEDS: PANTOPRAZOLE 40MG TAB (PROTONIX) PO SCH ×2 (09:02→20:51)
[2023-09-10] MEDS: **hydrALAZINE HCL** 25 MG TAB PO SCH ×3 (09:02→20:51)
[2023-09-10] MEDS: LEVEMIR (INSULIN DETEMIR) 1 UNITS/0.01ML SQ SCH ×2 (09:02→20:52)
[2023-09-10] MEDS: VENLAFAXINE **XR** 75MG CAPSULE PO SCH (09:02)
[2023-09-10] MEDS: ISOSORBIDE DIN. (ISORDIL) 20 MG TAB PO SCH ×3 (09:02→20:54)
[2023-09-10] MEDS: DIAPER RELIEF PASTE (DESITIN) 60GM TOP SCH (09:03)
[2023-09-10] MEDS: LACRILUBE (AKWA TEARS) OPHTH OINT 3.5GM OU SCH ×3 (09:03→20:52)
[2023-09-10 15:07] VITALS: BP 127/70
[2023-09-10 15:08] VITALS: BP 127/70; TEMP 97.9; O2SAT 100
[2023-09-10 20:44] VITALS: BP 124/70; TEMP 97.9; O2SAT 98
[2023-09-10] MEDS: ATORVASTATIN 20 MG TAB PO SCH (20:50)
[2023-09-10] MEDS: LATANOPROST 0.005% OPHTH SOLN 2.5 ML OU SCH (20:52)
[2023-09-10] MEDS: SENOKOT S TAB PO SCH (20:53)
[2023-09-11] MEDS: ACETAMINOPHEN TAB 650MG DOSE (2X325MG) PO PRN (03:25)
[2023-09-11] MEDS: HEPARIN SOD (PORCINE) 5000UNITS/ML 1ML VIAL/SYRINGE SC SCH ×3 (05:44→21:05)
[2023-09-11 05:51] VITALS: BP 125/69; TEMP 97.3; O2SAT 98
[2023-09-11] MEDS: INSULIN LISPRO (NovoLOG) PER UNIT SC SCH ×4 (06:59→21:00)
[2023-09-11] MEDS: ADVAIR HFA 115/21MCG INHALER INH SCH ×2 (07:46→21:00)
[2023-09-11] MEDS: BISACODYL 10MG SUPP PR SCH ×2 (09:00→21:00)
[2023-09-11] MEDS: METOPROLOL TART 25 MG TABLET PO SCH ×3 (09:00→21:03)
[2023-09-11] MEDS: VENLAFAXINE **XR** 75MG CAPSULE PO SCH (09:37)
[2023-09-11] MEDS: LACTOBACILLUS ACIDOPHILUS CAP (BACID) PO SCH ×2 (09:37→17:09)
[2023-09-11] MEDS: ISOSORBIDE DIN. (ISORDIL) 20 MG TAB PO SCH ×3 (09:38→21:03)
[2023-09-11] MEDS: busPIRone 10 MG TAB PO SCH ×2 (09:38→21:04)
[2023-09-11] MEDS: ASPIRIN 81MG CHEW TABLET PO SCH (09:39)
[2023-09-11] MEDS: CEFDINIR 300 MG CAP (OMNICEF) PO SCH ×2 (09:39→21:03)
[2023-09-11] MEDS: PANTOPRAZOLE 40MG TAB (PROTONIX) PO SCH ×2 (09:39→21:04)
[2023-09-11] MEDS: AMIODARONE 200 MG TAB (PACERONE) PO SCH (09:39)
[2023-09-11] MEDS: TAMSULOSIN 0.4 MG CAP PO SCH (09:40)
[2023-09-11] MEDS: RANOLAZINE 500MG ER TAB PO SCH ×2 (09:40→21:03)
[2023-09-11] MEDS: **hydrALAZINE HCL** 25 MG TAB PO SCH ×3 (09:41→21:04)
[2023-09-11] MEDS: LACRILUBE (AKWA TEARS) OPHTH OINT 3.5GM OU SCH ×3 (09:43→21:05)
[2023-09-11] MEDS: DIAPER RELIEF PASTE (DESITIN) 60GM TOP SCH (09:43)
[2023-09-11] MEDS: ONDANSETRON 4MG TAB PO PRN ×2 (11:35→21:03)
[2023-09-11] MEDS: LEVEMIR (INSULIN DETEMIR) 1 UNITS/0.01ML SQ SCH ×2 (12:47→21:04)
[2023-09-11 14:20] VITALS: BP 128/73; TEMP 97.9; O2SAT 97
[2023-09-11] MEDS: SENOKOT S TAB PO SCH (21:00)
[2023-09-11] MEDS: ATORVASTATIN 20 MG TAB PO SCH (21:04)
[2023-09-11] MEDS: LATANOPROST 0.005% OPHTH SOLN 2.5 ML OU SCH (21:05)
[2023-09-12] MEDS: HEPARIN SOD (PORCINE) 5000UNITS/ML 1ML VIAL/SYRINGE SC SCH ×3 (05:27→20:52)
[2023-09-12] MEDS: ACETAMINOPHEN TAB 650MG DOSE (2X325MG) PO PRN (05:28)
[2023-09-12 06:00] VITALS: BP 119/75; TEMP 97.5; O2SAT 99
[2023-09-12] MEDS: ADVAIR HFA 115/21MCG INHALER INH SCH ×2 (07:31→19:46)
[2023-09-12] MEDS: INSULIN LISPRO (NovoLOG) PER UNIT SC SCH ×4 (08:24→20:56)
[2023-09-12] MEDS: LEVEMIR (INSULIN DETEMIR) 1 UNITS/0.01ML SQ SCH ×2 (08:25→20:52)
[2023-09-12] MEDS: TORSEMIDE (DEMADEX) 50 MG PER 1/2 TAB PO SCH ×2 (08:25→17:09)
[2023-09-12] MEDS: RANOLAZINE 500MG ER TAB PO SCH ×2 (08:26→20:53)
[2023-09-12] MEDS: ISOSORBIDE DIN. (ISORDIL) 20 MG TAB PO SCH ×3 (08:26→20:55)
[2023-09-12] MEDS: ASPIRIN 81MG CHEW TABLET PO SCH (08:27)
[2023-09-12] MEDS: VENLAFAXINE **XR** 75MG CAPSULE PO SCH (08:27)
[2023-09-12] MEDS: LACTOBACILLUS ACIDOPHILUS CAP (BACID) PO SCH ×2 (08:27→17:08)
[2023-09-12] MEDS: CEFDINIR 300 MG CAP (OMNICEF) PO SCH ×2 (08:27→20:53)
[2023-09-12] MEDS: AMIODARONE 200 MG TAB (PACERONE) PO SCH (08:27)
[2023-09-12] MEDS: PANTOPRAZOLE 40MG TAB (PROTONIX) PO SCH ×2 (08:28→20:55)
[2023-09-12] MEDS: busPIRone 10 MG TAB PO SCH ×2 (08:28→20:53)
[2023-09-12] MEDS: DIAPER RELIEF PASTE (DESITIN) 60GM TOP SCH (08:29)
[2023-09-12] MEDS: TAMSULOSIN 0.4 MG CAP PO SCH (08:29)
[2023-09-12] MEDS: LACRILUBE (AKWA TEARS) OPHTH OINT 3.5GM OU SCH ×3 (08:29→20:53)
[2023-09-12] MEDS: METOPROLOL TART 25 MG TABLET PO SCH ×2 (08:30→20:54)
[2023-09-12] MEDS: **hydrALAZINE HCL** 25 MG TAB PO SCH ×3 (08:30→20:54)
[2023-09-12] MEDS: BISACODYL 10MG SUPP PR SCH ×2 (08:31→20:57)
[2023-09-12] MEDS: LATANOPROST 0.005% OPHTH SOLN 2.5 ML OU SCH (20:53)
[2023-09-12] MEDS: ATORVASTATIN 20 MG TAB PO SCH (20:54)
[2023-09-12] MEDS: SENOKOT S TAB PO SCH (20:56)
[2023-09-13] MEDS: HEPARIN SOD (PORCINE) 5000UNITS/ML 1ML VIAL/SYRINGE SC SCH ×3 (05:21→22:39)
[2023-09-13 06:30] VITALS: BP 119/75; TEMP 97.9; O2SAT 99
[2023-09-13] MEDS: INSULIN LISPRO (NovoLOG) PER UNIT SC SCH ×4 (08:03→21:00)
[2023-09-13] MEDS: LEVEMIR (INSULIN DETEMIR) 1 UNITS/0.01ML SQ SCH ×2 (08:06→21:03)
[2023-09-13] MEDS: TORSEMIDE (DEMADEX) 50 MG PER 1/2 TAB PO SCH ×2 (08:06→16:54)
[2023-09-13] MEDS: CEFDINIR 300 MG CAP (OMNICEF) PO SCH ×2 (08:07→21:02)
[2023-09-13] MEDS: ASPIRIN 81MG CHEW TABLET PO SCH (08:07)
[2023-09-13] MEDS: LACTOBACILLUS ACIDOPHILUS CAP (BACID) PO SCH ×2 (08:07→16:57)
[2023-09-13] MEDS: TAMSULOSIN 0.4 MG CAP PO SCH (08:07)
[2023-09-13] MEDS: VENLAFAXINE **XR** 75MG CAPSULE PO SCH (08:08)
[2023-09-13] MEDS: busPIRone 10 MG TAB PO SCH ×2 (08:08→20:59)
[2023-09-13] MEDS: PANTOPRAZOLE 40MG TAB (PROTONIX) PO SCH ×2 (08:08→21:03)
[2023-09-13] MEDS: RANOLAZINE 500MG ER TAB PO SCH ×2 (08:08→21:02)
[2023-09-13] MEDS: AMIODARONE 200 MG TAB (PACERONE) PO SCH (08:09)
[2023-09-13] MEDS: ISOSORBIDE DIN. (ISORDIL) 20 MG TAB PO SCH ×3 (08:09→21:03)
[2023-09-13] MEDS: METOPROLOL TART 25 MG TABLET PO SCH ×2 (08:09→21:03)
[2023-09-13] MEDS: **hydrALAZINE HCL** 25 MG TAB PO SCH ×3 (08:10→21:01)
[2023-09-13] MEDS: BISACODYL 10MG SUPP PR SCH ×2 (08:11→21:00)
[2023-09-13] MEDS: DIAPER RELIEF PASTE (DESITIN) 60GM TOP SCH (08:11)
[2023-09-13] MEDS: LACRILUBE (AKWA TEARS) OPHTH OINT 3.5GM OU SCH ×3 (08:11→21:04)
[2023-09-13] MEDS: ADVAIR HFA 115/21MCG INHALER INH SCH ×2 (08:45→20:00)
[2023-09-13] MEDS: DARBEPOETIN 40MCG/0.4ML *NON-DIALYSIS* SYRINGE SQ SCH (09:58)
[2023-09-13] MEDS: ONDANSETRON 4MG TAB PO PRN (18:38)
[2023-09-13] MEDS: ATORVASTATIN 20 MG TAB PO SCH (21:02)
[2023-09-13] MEDS: SENOKOT S TAB PO SCH (21:02)
[2023-09-13] MEDS: LATANOPROST 0.005% OPHTH SOLN 2.5 ML OU SCH (21:04)
[2023-09-14 05:48] VITALS: BP 126/78; TEMP 97.5; O2SAT 99
[2023-09-14] MEDS: HEPARIN SOD (PORCINE) 5000UNITS/ML 1ML VIAL/SYRINGE SC SCH (06:17)
[2023-09-14] MEDS: ADVAIR HFA 115/21MCG INHALER INH SCH (07:20)
[2023-09-14] MEDS: VENLAFAXINE **XR** 75MG CAPSULE PO SCH (08:17)
[2023-09-14] MEDS: LACRILUBE (AKWA TEARS) OPHTH OINT 3.5GM OU SCH (08:17)
[2023-09-14] MEDS: PANTOPRAZOLE 40MG TAB (PROTONIX) PO SCH (08:17)
[2023-09-14] MEDS: TORSEMIDE (DEMADEX) 50 MG PER 1/2 TAB PO SCH (08:17)
[2023-09-14] MEDS: BISACODYL 10MG SUPP PR SCH (08:17)
[2023-09-14] MEDS: AMIODARONE 200 MG TAB (PACERONE) PO SCH (08:18)
[2023-09-14] MEDS: RANOLAZINE 500MG ER TAB PO SCH (08:18)
[2023-09-14] MEDS: LACTOBACILLUS ACIDOPHILUS CAP (BACID) PO SCH (08:18)
[2023-09-14] MEDS: busPIRone 10 MG TAB PO SCH (08:18)
[2023-09-14] MEDS: ASPIRIN 81MG CHEW TABLET PO SCH (08:18)
[2023-09-14 08:19] VITALS: BP 125/77
[2023-09-14] MEDS: ISOSORBIDE DIN. (ISORDIL) 20 MG TAB PO SCH (08:19)
[2023-09-14] MEDS: METOPROLOL TART 25 MG TABLET PO SCH (08:19)
[2023-09-14] MEDS: TAMSULOSIN 0.4 MG CAP PO SCH (08:19)
[2023-09-14] MEDS: **hydrALAZINE HCL** 25 MG TAB PO SCH (08:19)
[2023-09-14] MEDS: INSULIN LISPRO (NovoLOG) PER UNIT SC SCH (08:20)
[2023-09-14] MEDS: LEVEMIR (INSULIN DETEMIR) 1 UNITS/0.01ML SQ SCH (08:20)
[2023-09-14] MEDS: DIAPER RELIEF PASTE (DESITIN) 60GM TOP SCH (08:21)
== END 2023-09-14 12:40 | DRG 194 ==
LOC: M PCU 18:17 → M MS5PR 08-30 11:40
PROVIDERS: ADMIT Internal Medicine; ATTEND General Practice
PROC: 30233N1 Transfusion of Nonautologous Red Blood Cells into Peripheral Vein, Percutaneous Approach (ICD-10-PCS; principal; 2023-08-21)
PROC: B246ZZZ Ultrasonography of Right and Left Heart (ICD-10-PCS; 2023-08-23)
DX: I13.0 Hypertensive heart and chronic kidney disease with heart failure and stage 1 through stage 4 chronic kidney disease, or unspecified chronic kidney disease (principal); I25.10 Atherosclerotic heart disease of native coronary artery without angina pectoris; Z95.5 Presence of coronary angioplasty implant and graft; N18.30 Chronic kidney disease, stage 3 unspecified; E11.22 Type 2 diabetes mellitus with diabetic chronic kidney disease; I50.33 Acute on chronic diastolic (congestive) heart failure; I48.0 Paroxysmal atrial fibrillation; N40.0 Benign prostatic hyperplasia without lower urinary tract symptoms; E66.2 Morbid (severe) obesity with alveolar hypoventilation; N17.9 Acute kidney failure, unspecified; J44.9 Chronic obstructive pulmonary disease, unspecified; F32.A Depression, unspecified; F41.9 Anxiety disorder, unspecified; L89.623 Pressure ulcer of left heel, stage 3; E87.3 Alkalosis; E44.0 Moderate protein-calorie malnutrition; J96.11 Chronic respiratory failure with hypoxia; E11.51 Type 2 diabetes mellitus with diabetic peripheral angiopathy without gangrene; E11.621 Type 2 diabetes mellitus with foot ulcer; E83.42 Hypomagnesemia; E11.628 Type 2 diabetes mellitus with other skin complications; E11.65 Type 2 diabetes mellitus with hyperglycemia; E11.69 Type 2 diabetes mellitus with other specified complication; I27.20 Pulmonary hypertension, unspecified; M86.9 Osteomyelitis, unspecified; D63.8 Anemia in other chronic diseases classified elsewhere; J98.11 Atelectasis; N39.0 Urinary tract infection, site not specified; Z79.82 Long term (current) use of aspirin; Z79.4 Long term (current) use of insulin; Z79.52 Long term (current) use of systemic steroids; Z79.899 Other long term (current) drug therapy; Z88.1 Allergy status to other antibiotic agents; Z88.8 Allergy status to other drugs, medicaments and biological substances; Z20.822 Contact with and (suspected) exposure to COVID-19

== ENCOUNTER 2023-11-24 11:14 | Inpatient (IN) | payer BC, OTHER ==
[~2023-11-24] VITALS: Ht 177.8 cm; Wt 104.7 kg
[~2023-11-24 11:14] MED LIST: ACET1TAB55 PO; ALDA25TA2 PO; AMIO200T49 PO; AMLO1TAB24 PO; ASPI81CH8 PO; ATOR1TAB21 PO; BACI1CAP PO; BREO1INH PO; BUSP15TA47 PO; BUSP30TA PO; CEPH250T PO; ECOT81TA5 PO; ERTA1INJ3 IJ; FLOM0.4C39 PO; FURO40TA2 PO; HYDR25TA88 PO; INSU100V6 SQ; INSUDET SQ; INSUH10VL SC; INSUHUMDS SC; INSULADS SC; IPRA0.00 INH; ISOS20TA4 PO; LANTINJ4 SQ; MELA3TAB30 PO; METO25TA4 PO; MUCI1TAB16 PO; NITR0.4S14 SL; ONDA-83 PO; PANT-23 PO; POLY510P14 PO; PRED20TA PO; RANO10002 PO; SANT250O8 TOP; SENN-23 PO; SYMB16INH INH; TORS100T PO; VALT500T PO; VENL75CA2 PO; XALA0.007 OU; [UNRECOGNIZED DRUG - CODE] PO; [UNRECOGNIZED DRUG - CODE] SQ
[2023-11-24] MEDS: NS 500 ML IV ONE (12:59)
[2023-11-24 13:08] LABS: BASO # 0.1 10^3/uL (0.0-0.2); BASO % 0.6 % (0.0-1.0); EOS # 0.2 10^3/uL (0.0-0.5); HEMATOCRIT 26.4 % (42.0-52.0); HEMOGLOBIN 8.9 g/dl (13.5-17.5); LYMPH # 1.1 10^3/uL (1.5-5.0); LYMPH % 10.2 % (24.0-44.0); MEAN CORPUSCULAR HEMOGLOBIN 32.4 pg (27.0-33.0); MEAN CORPUSCULAR HGB CONC 33.7 g/dl (32.0-36.5); MONO # 0.5 10^3/uL (0.0-0.8); MONO % 4.8 % (2.0-8.0); NEUTROPHILS # 8.9 10^3/uL (1.5-8.5); NEUTROPHILS % 81.8 % (36.0-66.0); PLATELET COUNT, AUTOMATED 173 10^3/uL (150-450); RED BLOOD COUNT 2.75 10^6/uL (4.30-6.10); WHITE BLOOD COUNT 10.9 10^3/uL (4.0-10.0)
[2023-11-24 13:19] LABS: INR 1.12; PROTHROMBIN TIME 14.1 SECONDS (12.5-14.5)
[2023-11-24] MEDS: diphenhydrAMINE 50MG/ML VIAL IV ONE (13:19)
[2023-11-24 13:20] LABS: PARTIAL THROMBOPLASTIN TIME 28.1 SECONDS (24.8-34.2)
[2023-11-24 13:35] LABS: ALBUMIN 1.8 G/DL (3.2-5.2); ALKALINE PHOSPHATASE 90 U/L (46-116); ALT/SGPT 27 U/L (7.0-40); AMYLASE 74 U/L (30-118); AST/SGOT 18 U/L (<34); BILIRUBIN,DIRECT 0.2 MG/DL (<0.4); BILIRUBIN,TOTAL 0.4 MG/DL (0.3-1.2); BLOOD UREA NITROGEN 26 MG/DL (9-23); CALCIUM LEVEL 7.6 MG/DL (8.3-10.6); CARBON DIOXIDE LEVEL 25 MMOL/L (20-31); CHLORIDE LEVEL 108 MMOL/L (98-107); CREATININE FOR GFR 1.07 MG/DL (0.70-1.30); GLOMERULAR FILTRATION RATE > 60.0 (>49); GLUCOSE, FASTING 129 MG/DL (74-106); POTASSIUM SERUM 4.6 MMOL/L (3.5-5.1); SODIUM LEVEL 137 MMOL/L (136-145); TOTAL PROTEIN 5.1 G/DL (5.7-8.2)
[2023-11-24 13:37] LABS: RSV AMPLIFICATION NEGATIVE (NEGATIVE)
[2023-11-24 13:45] LABS: ERYTHROCYTE SEDIMENTATION RATE 59 mm/hr (0-20)
[2023-11-24 13:47] LABS: PROCALCITONIN 0.18 ng/ml
[2023-11-24] MEDS ORDERED: GABA-1171 PO (14:02)
[2023-11-24] MEDS ORDERED: LANTINJ4 SC (14:02)
[2023-11-24] MEDS ORDERED: SENN-186 PO (14:02)
[2023-11-24] MEDS ORDERED: BUDE10.2 IH (14:02)
[2023-11-24] MEDS ORDERED: HYDR-3713 PO (14:02)
[2023-11-24] MEDS ORDERED: HEPA10IN30 IV (14:02)
[2023-11-24] MEDS: SODIUM CHLORIDE 0.9% INJ 10 ML SYR IV PRN (14:23)
[2023-11-24] MEDS ORDERED: HUMA100I5 SC (14:26)
[2023-11-24] MEDS ORDERED: HOME MED LIST COMPLETE! XX SCH (14:30)
[2023-11-24] MEDS: CEFEPIME HCL 1 GM in D5W MINI-BAG PLUS 50 ML IV ONE (15:43)
[2023-11-24] MEDS: VANCOMYCIN HCL 1,000 MG, VIAL MATE ADAPTER 1 EACH in D5W 250 ML IV ONE (17:03)
[2023-11-24] MEDS ORDERED: IPRATROPIUM 0.5MG/ALBUTEROL 2.5MG INH SOL UD 3ML (DUONEB) NEB PRN (17:15)
[2023-11-24] MEDS ORDERED: GLUCAGON INJ 1MG VIAL SC PRN (17:15)
[2023-11-24] MEDS ORDERED: DEXTROSE 50% 50ML SYRINGE IV PRN (17:15)
[2023-11-24] MEDS ORDERED: GLUCOSE 4GM CHEW TABLET PO PRN (17:15)
[2023-11-24] MEDS: NORCO, ANEXSIA 5/325MG TABLET (HYDROcodone/ACETAMINOPHEN) PO PRN (18:25)
[2023-11-24] MEDS: SODIUM CHLORIDE 0.9% INJ 10 ML SYR IV SCH (19:01)
[2023-11-24] MEDS: INSULIN LISPRO (NovoLOG) PER UNIT SC SCH ×2 (19:01→21:00)
[2023-11-24 20:15] VITALS: BP 147/83; TEMP 97.3; O2SAT 98
[2023-11-24] MEDS: SYMBICORT 160/4.5MCG INHALER 6GM INH SCH (20:45)
[2023-11-24] MEDS ORDERED: ISOSORBIDE DIN. (ISORDIL) 20 MG TAB PO SCH (21:00)
[2023-11-24] MEDS: LEVEMIR (INSULIN DETEMIR) 1 UNITS/0.01ML SC SCH (21:00)
[2023-11-24] MEDS ORDERED: VANCOMYCIN HCL 750 MG, VIAL MATE ADAPTER 1 EACH in D5W 250 ML IV ONE (21:00)
[2023-11-24] MEDS: VANCOMYCIN HCL 750 MG, VIAL MATE ADAPTER 1 EACH in D5W 250 ML IV SCH (21:48)
[2023-11-24] MEDS: GABAPENTIN 100 MG CAP PO SCH (21:49)
[2023-11-24] MEDS: ATORVASTATIN 20 MG TAB PO SCH (21:49)
[2023-11-24] MEDS: TAMSULOSIN 0.4 MG CAP PO SCH (21:49)
[2023-11-24] MEDS: HEPARIN SOD (PORCINE) 5000UNITS/ML 1ML VIAL/SYRINGE SQ SCH (21:49)
[2023-11-24] MEDS: busPIRone 5 MG TAB PO SCH (21:49)
[2023-11-24] MEDS ORDERED: VANCOMYCIN HCL 500 MG in D5W MINI-BAG PLUS 100 ML IV ONE (22:00)
[2023-11-24] MEDS: ISOSORBIDE DIN. (ISORDIL) 20 MG TAB PO SCH (22:10)
[2023-11-24] MEDS: VANCOMYCIN HCL 500 MG in D5W MINI-BAG PLUS 100 ML IV SCH (23:02)
[2023-11-25] VITALS (7 sets, daily range): BP systolic 112–162; BP diastolic 62–88; TEMP 97.2–97.5; O2SAT 94–97
[2023-11-25] MEDS: MEROPENEM INJ 1 GM in IV 1 EA IV SCH (00:07)
[2023-11-25 06:59] LABS: HEMATOCRIT 26.8 % (42.0-52.0); HEMOGLOBIN 8.9 g/dl (13.5-17.5); MEAN CORPUSCULAR HEMOGLOBIN 31.9 pg (27.0-33.0); MEAN CORPUSCULAR HGB CONC 33.2 g/dl (32.0-36.5); MEAN CORPUSCULAR VOLUME 96.1 fl (80.0-96.0); PLATELET COUNT, AUTOMATED 156 10^3/uL (150-450); RED BLOOD COUNT 2.79 10^6/uL (4.30-6.10); WHITE BLOOD COUNT 7.4 10^3/uL (4.0-10.0)
[2023-11-25 07:26] LABS: BLOOD UREA NITROGEN 23 MG/DL (9-23); CALCIUM LEVEL 7.7 MG/DL (8.3-10.6); CARBON DIOXIDE LEVEL 25 MMOL/L (20-31); CHLORIDE LEVEL 109 MMOL/L (98-107); CREATININE FOR GFR 0.95 MG/DL (0.70-1.30); GLOMERULAR FILTRATION RATE > 60.0 (>49); GLUCOSE, FASTING 123 MG/DL (74-106); POTASSIUM SERUM 4.6 MMOL/L (3.5-5.1); SODIUM LEVEL 138 MMOL/L (136-145)
[2023-11-25] MEDS: AMIODARONE 200 MG TAB (PACERONE) PO SCH (08:57)
[2023-11-25] MEDS: diphenhydrAMINE 12.5MG/5ML ELIXIR UDC PO PRN (08:57)
[2023-11-25] MEDS: PANTOPRAZOLE 40MG TAB (PROTONIX) PO SCH (08:58)
[2023-11-25] MEDS: ASPIRIN 81MG ENTERIC TABLET PO SCH (08:58)
[2023-11-25] MEDS: VENLAFAXINE **XR** 75MG CAPSULE PO SCH (09:00)
[2023-11-25] MEDS: VANCOMYCIN HCL 1,000 MG, VIAL MATE ADAPTER 1 EACH in D5W 250 ML IV SCH (10:14)
[2023-11-25] MEDS ORDERED: ONDANSETRON 4MG 2ML VIAL As Ordered ONE (15:43)
[2023-11-25] MEDS ORDERED: LIDOCAINE 2% 100MG/5ML SDV (FOR ANES.) As Ordered ONE (15:44)
[2023-11-25] MEDS ORDERED: propofoL 200 MG/20 ML VIAL As Ordered ONE (15:44)
[2023-11-25] MEDS ORDERED: CALCIUM CHLORIDE 10% 1 GM/10 ML SYR As Ordered ONE (15:53)
[2023-11-25] MEDS ORDERED: ROCURONIUM BROMIDE 50MG/5ML VIAL As Ordered ONE (15:54)
[2023-11-25] MEDS ORDERED: ROPIvacaine 0.5% 30ML VIAL As Ordered ONE (15:54)
[2023-11-25] MEDS ORDERED: SUGAMMADEX SODIUM 500 MG/5 ML VIAL (BRIDION) As Ordered ONE (15:54)
[2023-11-25] MEDS ORDERED: fentaNYL 100 MCG/2 ML INJECTION As Ordered ONE (15:56)
[2023-11-25] MEDS ORDERED: ETOMIDATE INJ 20MG/10ML VIAL As Ordered ONE (16:42)
[2023-11-25] MEDS: LIDOCAINE 2% MDV 20ML VIAL As Ordered ONE (18:35)
[2023-11-25] MEDS: GENTAMICIN SULF 80MG/2ML VIAL As Ordered ONE (19:22)
[2023-11-25] MEDS ORDERED: GLUCOSE 4GM CHEW TABLET PO PRN (20:05)
[2023-11-25] MEDS ORDERED: fentaNYL 100 MCG/2 ML INJECTION IV PRN (20:05)
[2023-11-25] MEDS ORDERED: oxyCODONE 5MG TAB PO PRN (20:05)
[2023-11-25] MEDS ORDERED: ONDANSETRON 4MG 2ML VIAL IV PRN (20:05)
[2023-11-25] MEDS: LR 1,000 ML IV SCH (20:05)
[2023-11-25] MEDS ORDERED: DEXTROSE 50% 50ML SYRINGE IV PRN (20:05)
[2023-11-25] MEDS ORDERED: GLUCAGON INJ 1MG VIAL SC PRN (20:05)
[2023-11-26] VITALS (8 sets, daily range): BP systolic 105–126; BP diastolic 53–70; TEMP 97.2–97.6; O2SAT 95–98
[2023-11-26 08:03] LABS: BASO # 0.1 10^3/uL (0.0-0.2); BASO % 0.8 % (0.0-1.0); EOS # 0.3 10^3/uL (0.0-0.5); EOS % 3.4 % (0.0-3.0); HEMATOCRIT 24.4 % (42.0-52.0); HEMOGLOBIN 7.9 g/dl (13.5-17.5); LYMPH # 0.8 10^3/uL (1.5-5.0); LYMPH % 11.2 % (24.0-44.0); MEAN CORPUSCULAR HEMOGLOBIN 31.5 pg (27.0-33.0); MEAN CORPUSCULAR HGB CONC 32.4 g/dl (32.0-36.5); MEAN CORPUSCULAR VOLUME 97.2 fl (80.0-96.0); MONO # 0.5 10^3/uL (0.0-0.8); MONO % 6.7 % (2.0-8.0); NEUTROPHILS # 5.6 10^3/uL (1.5-8.5); NEUTROPHILS % 77.1 % (36.0-66.0); PLATELET COUNT, AUTOMATED 152 10^3/uL (150-450); RED BLOOD COUNT 2.51 10^6/uL (4.30-6.10); WHITE BLOOD COUNT 7.3 10^3/uL (4.0-10.0)
[2023-11-26 08:26] LABS: BLOOD UREA NITROGEN 23 MG/DL (9-23); CALCIUM LEVEL 7.7 MG/DL (8.3-10.6); CARBON DIOXIDE LEVEL 27 MMOL/L (20-31); CHLORIDE LEVEL 110 MMOL/L (98-107); CREATININE FOR GFR 1.19 MG/DL (0.70-1.30); GLOMERULAR FILTRATION RATE > 60.0 (>49); GLUCOSE, FASTING 180 MG/DL (74-106); MAGNESIUM LEVEL 1.6 MG/DL (1.8-2.4); POTASSIUM SERUM 5.1 MMOL/L (3.5-5.1); SODIUM LEVEL 139 MMOL/L (136-145)
[2023-11-26] MEDS: SANTYL OINT 30GM TOP SCH (12:59)
[2023-11-26 21:48] LABS: HEMOGLOBIN 8.3 g/dl (13.5-17.5)
[2023-11-26] MEDS: LIDOCAINE 5% (LIDODERM) PATCH TD SCH (21:52)
[2023-11-26] MEDS: MAG SULF 1GM/100ML (MAG RUN) 1 GM in IV 1 EA IV SCH (21:56)
[2023-11-27 05:35] VITALS: BP 141/68; TEMP 97.7
[2023-11-27 06:43] LABS: BASO # 0.1 10^3/uL (0.0-0.2); BASO % 0.6 % (0.0-1.0); EOS # 0.2 10^3/uL (0.0-0.5); EOS % 2.2 % (0.0-3.0); HEMATOCRIT 21.6 % (42.0-52.0); HEMOGLOBIN 7.1 g/dl (13.5-17.5); LYMPH # 0.8 10^3/uL (1.5-5.0); LYMPH % 9.1 % (24.0-44.0); MEAN CORPUSCULAR HGB CONC 32.9 g/dl (32.0-36.5); MEAN CORPUSCULAR VOLUME 97.3 fl (80.0-96.0); MONO # 0.6 10^3/uL (0.0-0.8); NEUTROPHILS # 7.2 10^3/uL (1.5-8.5); NEUTROPHILS % 80.2 % (36.0-66.0); PLATELET COUNT, AUTOMATED 161 10^3/uL (150-450); RED BLOOD COUNT 2.22 10^6/uL (4.30-6.10)
[2023-11-27 07:07] LABS: BLOOD UREA NITROGEN 28 MG/DL (9-23); CALCIUM LEVEL 7.6 MG/DL (8.3-10.6); CARBON DIOXIDE LEVEL 24 MMOL/L (20-31); CHLORIDE LEVEL 107 MMOL/L (98-107); CREATININE FOR GFR 1.23 MG/DL (0.70-1.30); GLOMERULAR FILTRATION RATE > 60.0 (>49); GLUCOSE, FASTING 165 MG/DL (74-106); MAGNESIUM LEVEL 2.1 MG/DL (1.8-2.4); POTASSIUM SERUM 4.7 MMOL/L (3.5-5.1); SODIUM LEVEL 136 MMOL/L (136-145)
[2023-11-27] MEDS: DULoxetine 20MG CAP (CYMBALTA) PO SCH (08:22)
[2023-11-27 14:00] VITALS: BP 133/68; TEMP 97.5; O2SAT 99
[2023-11-27 20:30] VITALS: BP 121/82; TEMP 97.5
[2023-11-28 06:54] LABS: BASO % 0.5 % (0.0-1.0); EOS # 0.2 10^3/uL (0.0-0.5); EOS % 2.8 % (0.0-3.0); HEMATOCRIT 21.6 % (42.0-52.0); HEMOGLOBIN 7.1 g/dl (13.5-17.5); LYMPH # 0.9 10^3/uL (1.5-5.0); LYMPH % 12.2 % (24.0-44.0); MEAN CORPUSCULAR HEMOGLOBIN 32.3 pg (27.0-33.0); MEAN CORPUSCULAR HGB CONC 32.9 g/dl (32.0-36.5); MEAN CORPUSCULAR VOLUME 98.2 fl (80.0-96.0); MONO # 0.5 10^3/uL (0.0-0.8); MONO % 6.6 % (2.0-8.0); NEUTROPHILS # 5.9 10^3/uL (1.5-8.5); NEUTROPHILS % 77.1 % (36.0-66.0); PLATELET COUNT, AUTOMATED 153 10^3/uL (150-450); WHITE BLOOD COUNT 7.6 10^3/uL (4.0-10.0)
[2023-11-28 07:18] LABS: VANCOMYCIN RANDOM 14.7 UG/ML
[2023-11-28 07:20] LABS: BLOOD UREA NITROGEN 25 MG/DL (9-23); CALCIUM LEVEL 7.6 MG/DL (8.3-10.6); CARBON DIOXIDE LEVEL 26 MMOL/L (20-31); CHLORIDE LEVEL 110 MMOL/L (98-107); CREATININE FOR GFR 1.25 MG/DL (0.70-1.30); GLOMERULAR FILTRATION RATE > 60.0 (>49); GLUCOSE, FASTING 125 MG/DL (74-106); MAGNESIUM LEVEL 1.9 MG/DL (1.8-2.4); POTASSIUM SERUM 5.3 MMOL/L (3.5-5.1); SODIUM LEVEL 139 MMOL/L (136-145)
[2023-11-28] MEDS: INSULIN LISPRO (NovoLOG) PER UNIT SC PRN (08:25)
[2023-11-28] MEDS ORDERED: VANCOMYCIN INTERMITTENT/PULSE DOSING BY CLINICAL PHARMACIST PER DOSING PROTOCOL XX SCH (08:50)
[2023-11-28] MEDS: VANCOMYCIN HCL 500 MG in D5W MINI-BAG PLUS 100 ML IV ONE (12:02)
[2023-11-28 14:53] VITALS: BP 116/52; TEMP 97.5; O2SAT 94
[2023-11-28] MEDS: ACETAMINOPHEN TAB 650MG DOSE (2X325MG) PO PRN (18:22)
[2023-11-28 20:23] VITALS: BP 124/65; TEMP 97.7; O2SAT 99
[2023-11-28] MEDS: GABAPENTIN 100 MG CAP PO SCH (21:43)
[2023-11-29 06:00] VITALS: BP 153/71; TEMP 97.7; O2SAT 99
[2023-11-29 07:13] LABS: BASO # 0.1 10^3/uL (0.0-0.2); BASO % 0.7 % (0.0-1.0); EOS # 0.3 10^3/uL (0.0-0.5); EOS % 3.6 % (0.0-3.0); HEMATOCRIT 22.3 % (42.0-52.0); HEMOGLOBIN 7.3 g/dl (13.5-17.5); LYMPH % 14.7 % (24.0-44.0); MEAN CORPUSCULAR HEMOGLOBIN 32.4 pg (27.0-33.0); MEAN CORPUSCULAR HGB CONC 32.7 g/dl (32.0-36.5); MEAN CORPUSCULAR VOLUME 99.1 fl (80.0-96.0); MONO # 0.6 10^3/uL (0.0-0.8); MONO % 8.2 % (2.0-8.0); NEUTROPHILS % 71.8 % (36.0-66.0); PLATELET COUNT, AUTOMATED 178 10^3/uL (150-450); RED BLOOD COUNT 2.25 10^6/uL (4.30-6.10); WHITE BLOOD COUNT 6.9 10^3/uL (4.0-10.0)
[2023-11-29 07:46] LABS: BLOOD UREA NITROGEN 23 MG/DL (9-23); CALCIUM LEVEL 7.7 MG/DL (8.3-10.6); CARBON DIOXIDE LEVEL 26 MMOL/L (20-31); CHLORIDE LEVEL 112 MMOL/L (98-107); CREATININE FOR GFR 1.16 MG/DL (0.70-1.30); GLOMERULAR FILTRATION RATE > 60.0 (>49); GLUCOSE, FASTING 138 MG/DL (74-106); MAGNESIUM LEVEL 1.9 MG/DL (1.8-2.4); POTASSIUM SERUM 5.3 MMOL/L (3.5-5.1); SODIUM LEVEL 138 MMOL/L (136-145)
[2023-11-29 14:00] VITALS: BP 131/64; TEMP 97.7; O2SAT 98
[2023-11-29] MEDS: VANCOMYCIN HCL 500 MG in D5W MINI-BAG PLUS 100 ML IV ONE (14:55)
[2023-11-29] MEDS: MIRALAX *UNIT DOSE* 17GM PACKET PO SCH (14:55)
[2023-11-29] MEDS: FUROSEMIDE 20 MG TAB PO ONE (17:44)
[2023-11-29 20:20] VITALS: BP 104/58; TEMP 97.9; O2SAT 99
[2023-11-30 05:43] VITALS: BP 127/67; TEMP 97.1; O2SAT 98
[2023-11-30 07:05] LABS: BASO # 0.1 10^3/uL (0.0-0.2); BASO % 0.9 % (0.0-1.0); EOS # 0.2 10^3/uL (0.0-0.5); EOS % 3.7 % (0.0-3.0); HEMOGLOBIN 7.1 g/dl (13.5-17.5); LYMPH % 14.8 % (24.0-44.0); MEAN CORPUSCULAR HEMOGLOBIN 31.8 pg (27.0-33.0); MEAN CORPUSCULAR HGB CONC 32.3 g/dl (32.0-36.5); MEAN CORPUSCULAR VOLUME 98.7 fl (80.0-96.0); MONO # 0.6 10^3/uL (0.0-0.8); NEUTROPHILS # 4.5 10^3/uL (1.5-8.5); NEUTROPHILS % 70.4 % (36.0-66.0); PLATELET COUNT, AUTOMATED 201 10^3/uL (150-450); RED BLOOD COUNT 2.23 10^6/uL (4.30-6.10); WHITE BLOOD COUNT 6.4 10^3/uL (4.0-10.0)
[2023-11-30 07:29] LABS: VANCOMYCIN RANDOM 13.8 UG/ML
[2023-11-30 07:45] VITALS: BP 116/84; TEMP 97.9; O2SAT 98
[2023-11-30 07:47] LABS: BLOOD UREA NITROGEN 24 MG/DL (9-23); CALCIUM LEVEL 7.7 MG/DL (8.3-10.6); CARBON DIOXIDE LEVEL 26 MMOL/L (20-31); CHLORIDE LEVEL 110 MMOL/L (98-107); CREATININE FOR GFR 1.09 MG/DL (0.70-1.30); GLOMERULAR FILTRATION RATE > 60.0 (>49); GLUCOSE, FASTING 117 MG/DL (74-106); MAGNESIUM LEVEL 1.7 MG/DL (1.8-2.4); SODIUM LEVEL 138 MMOL/L (136-145)
[2023-11-30] MEDS: VANCOMYCIN HCL 750 MG, VIAL MATE ADAPTER 1 EACH in D5W 250 ML IV SCH (10:09)
[2023-11-30 11:35] LABS: IRON (FE) 37 UG/DL (65-175); PERCENT SATURATION 18.3 % (19.7-50.0); TOTAL IRON BINDING CAPACITY 202 UG/DL (250-425)
[2023-11-30 11:39] LABS: FERRITIN 54.5 NG/ML (10.5-307.3); VITAMIN B12 LEVEL 712 PG/ML (211-911)
[2023-11-30] MEDS: SENNA 8.6 MG TAB (SENOKOT) PO PRN (11:47)
[2023-11-30 13:06] VITALS: BP 108/76
[2023-11-30 14:10] VITALS: TEMP 97.9; O2SAT 99
[2023-11-30] MEDS: BISACODYL 10MG SUPP PR ONE (14:22)
[2023-11-30 22:00] VITALS: BP 127/68; TEMP 97.9; O2SAT 98
[2023-12-01 05:55] VITALS: BP 125/59; TEMP 97.3; O2SAT 98
[2023-12-01] MEDS: MAG SULF 1GM/100ML (MAG RUN) 1 GM in IV 1 EA IV SCH (09:00)
[2023-12-01 09:27] LABS: BASO # 0.1 10^3/uL (0.0-0.2); BASO % 0.8 % (0.0-1.0); EOS # 0.3 10^3/uL (0.0-0.5); EOS % 4.4 % (0.0-3.0); HEMATOCRIT 23.8 % (42.0-52.0); HEMOGLOBIN 7.8 g/dl (13.5-17.5); LYMPH # 0.9 10^3/uL (1.5-5.0); LYMPH % 15.5 % (24.0-44.0); MEAN CORPUSCULAR HEMOGLOBIN 32.4 pg (27.0-33.0); MEAN CORPUSCULAR HGB CONC 32.8 g/dl (32.0-36.5); MEAN CORPUSCULAR VOLUME 98.8 fl (80.0-96.0); MONO # 0.4 10^3/uL (0.0-0.8); MONO % 7.2 % (2.0-8.0); NEUTROPHILS # 4.3 10^3/uL (1.5-8.5); NEUTROPHILS % 71.3 % (36.0-66.0); PLATELET COUNT, AUTOMATED 222 10^3/uL (150-450); RED BLOOD COUNT 2.41 10^6/uL (4.30-6.10); WHITE BLOOD COUNT 6.1 10^3/uL (4.0-10.0)
[2023-12-01 09:52] LABS: BLOOD UREA NITROGEN 25 MG/DL (9-23); CALCIUM LEVEL 7.8 MG/DL (8.3-10.6); CARBON DIOXIDE LEVEL 26 MMOL/L (20-31); CHLORIDE LEVEL 110 MMOL/L (98-107); CREATININE FOR GFR 1.05 MG/DL (0.70-1.30); GLOMERULAR FILTRATION RATE > 60.0 (>49); GLUCOSE, FASTING 126 MG/DL (74-106); MAGNESIUM LEVEL 1.6 MG/DL (1.8-2.4); POTASSIUM SERUM 5.5 MMOL/L (3.5-5.1); SODIUM LEVEL 139 MMOL/L (136-145)
[2023-12-01] MEDS: FOLIC ACID 1MG TAB PO SCH (10:31)
[2023-12-01] MEDS: VANCOMYCIN HCL 500 MG in D5W MINI-BAG PLUS 100 ML IV SCH (11:31)
[2023-12-01] MEDS: PERCOCET 5MG/325MG TAB PO PRN (12:30)
[2023-12-01 14:00] VITALS: BP 121/65; TEMP 97.5; O2SAT 100
[2023-12-01 20:10] VITALS: BP 123/64; TEMP 97.9; O2SAT 97
[2023-12-02 09:26] LABS: BASO # 0.1 10^3/uL (0.0-0.2); BASO % 0.9 % (0.0-1.0); EOS # 0.3 10^3/uL (0.0-0.5); EOS % 4.5 % (0.0-3.0); HEMOGLOBIN 7.7 g/dl (13.5-17.5); LYMPH # 1.2 10^3/uL (1.5-5.0); LYMPH % 16.9 % (24.0-44.0); MEAN CORPUSCULAR HEMOGLOBIN 31.7 pg (27.0-33.0); MEAN CORPUSCULAR HGB CONC 32.1 g/dl (32.0-36.5); MEAN CORPUSCULAR VOLUME 98.8 fl (80.0-96.0); MONO # 0.6 10^3/uL (0.0-0.8); MONO % 8.5 % (2.0-8.0); NEUTROPHILS # 4.6 10^3/uL (1.5-8.5); PLATELET COUNT, AUTOMATED 225 10^3/uL (150-450); RED BLOOD COUNT 2.43 10^6/uL (4.30-6.10); WHITE BLOOD COUNT 6.8 10^3/uL (4.0-10.0)
[2023-12-02 09:55] LABS: VANCOMYCIN LEVEL TROUGH 13.5 UG/ML (10.0-20.0)
[2023-12-02 09:56] LABS: BLOOD UREA NITROGEN 28 MG/DL (9-23); CALCIUM LEVEL 7.7 MG/DL (8.3-10.6); CARBON DIOXIDE LEVEL 28 MMOL/L (20-31); CHLORIDE LEVEL 109 MMOL/L (98-107); CREATININE FOR GFR 1.16 MG/DL (0.70-1.30); GLOMERULAR FILTRATION RATE > 60.0 (>49); GLUCOSE, FASTING 123 MG/DL (74-106); MAGNESIUM LEVEL 1.8 MG/DL (1.8-2.4); POTASSIUM SERUM 5.4 MMOL/L (3.5-5.1); SODIUM LEVEL 138 MMOL/L (136-145)
[2023-12-02 10:59] LABS: CPK CREATINE PHOSPHOKINASE 42 U/L (46-171)
[2023-12-02 14:00] VITALS: BP 115/64; TEMP 97.7; O2SAT 99
[2023-12-02 20:10] VITALS: BP 142/70; TEMP 97.8; O2SAT 98
[2023-12-03 06:30] VITALS: BP 139/73; TEMP 97.3; O2SAT 99
[2023-12-03 07:05] LABS: BASO # 0.1 10^3/uL (0.0-0.2); BASO % 0.9 % (0.0-1.0); EOS # 0.3 10^3/uL (0.0-0.5); EOS % 4.6 % (0.0-3.0); HEMATOCRIT 23.3 % (42.0-52.0); HEMOGLOBIN 7.5 g/dl (13.5-17.5); LYMPH % 14.8 % (24.0-44.0); MEAN CORPUSCULAR HEMOGLOBIN 31.5 pg (27.0-33.0); MEAN CORPUSCULAR HGB CONC 32.2 g/dl (32.0-36.5); MEAN CORPUSCULAR VOLUME 97.9 fl (80.0-96.0); MONO # 0.6 10^3/uL (0.0-0.8); MONO % 8.8 % (2.0-8.0); NEUTROPHILS # 4.7 10^3/uL (1.5-8.5); NEUTROPHILS % 69.3 % (36.0-66.0); PLATELET COUNT, AUTOMATED 224 10^3/uL (150-450); RED BLOOD COUNT 2.38 10^6/uL (4.30-6.10); WHITE BLOOD COUNT 6.7 10^3/uL (4.0-10.0)
[2023-12-03 07:36] LABS: BLOOD UREA NITROGEN 32 MG/DL (9-23); CALCIUM LEVEL 7.5 MG/DL (8.3-10.6); CARBON DIOXIDE LEVEL 28 MMOL/L (20-31); CHLORIDE LEVEL 109 MMOL/L (98-107); CREATININE FOR GFR 1.09 MG/DL (0.70-1.30); GLOMERULAR FILTRATION RATE > 60.0 (>49); GLUCOSE, FASTING 130 MG/DL (74-106); MAGNESIUM LEVEL 1.7 MG/DL (1.8-2.4); SODIUM LEVEL 138 MMOL/L (136-145)
[2023-12-03] MEDS: MAG SULF 1GM/100ML (MAG RUN) 1 GM in IV 1 EA IV SCH (09:11)
[2023-12-03 14:00] VITALS: BP 113/57; TEMP 97.5; O2SAT 98
[2023-12-03 20:20] VITALS: BP 135/62; TEMP 97.5; O2SAT 97
[2023-12-04 06:04] VITALS: BP 132/63; TEMP 97.7; O2SAT 97
[2023-12-04 10:14] LABS: HEMATOCRIT 22.2 % (42.0-52.0); HEMOGLOBIN 7.1 g/dl (13.5-17.5); MEAN CORPUSCULAR HEMOGLOBIN 31.3 pg (27.0-33.0); MEAN CORPUSCULAR VOLUME 97.8 fl (80.0-96.0); PLATELET COUNT, AUTOMATED 209 10^3/uL (150-450); RED BLOOD COUNT 2.27 10^6/uL (4.30-6.10); WHITE BLOOD COUNT 6.6 10^3/uL (4.0-10.0)
[2023-12-04 10:41] LABS: BLOOD UREA NITROGEN 33 MG/DL (9-23); CALCIUM LEVEL 7.7 MG/DL (8.3-10.6); CARBON DIOXIDE LEVEL 27 MMOL/L (20-31); CHLORIDE LEVEL 110 MMOL/L (98-107); CREATININE FOR GFR 1.09 MG/DL (0.70-1.30); GLOMERULAR FILTRATION RATE > 60.0 (>49); GLUCOSE, FASTING 151 MG/DL (74-106); POTASSIUM SERUM 4.9 MMOL/L (3.5-5.1); SODIUM LEVEL 139 MMOL/L (136-145)
[2023-12-04 14:00] VITALS: BP 141/80; TEMP 97.5; O2SAT 94
[2023-12-04 21:49] VITALS: BP 112/48; TEMP 97.2; O2SAT 98
[2023-12-05 05:41] VITALS: BP 124/88; TEMP 97.9; O2SAT 98
[2023-12-05 06:37] LABS: BASO % 0.7 % (0.0-1.0); EOS # 0.3 10^3/uL (0.0-0.5); EOS % 5.1 % (0.0-3.0); HEMATOCRIT 23.6 % (42.0-52.0); HEMOGLOBIN 7.6 g/dl (13.5-17.5); LYMPH # 1.1 10^3/uL (1.5-5.0); LYMPH % 17.4 % (24.0-44.0); MEAN CORPUSCULAR HEMOGLOBIN 31.5 pg (27.0-33.0); MEAN CORPUSCULAR HGB CONC 32.2 g/dl (32.0-36.5); MEAN CORPUSCULAR VOLUME 97.9 fl (80.0-96.0); MONO # 0.6 10^3/uL (0.0-0.8); MONO % 9.5 % (2.0-8.0); PLATELET COUNT, AUTOMATED 219 10^3/uL (150-450); RED BLOOD COUNT 2.41 10^6/uL (4.30-6.10)
[2023-12-05 07:05] LABS: BLOOD UREA NITROGEN 36 MG/DL (9-23); CALCIUM LEVEL 7.3 MG/DL (8.3-10.6); CARBON DIOXIDE LEVEL 26 MMOL/L (20-31); CHLORIDE LEVEL 109 MMOL/L (98-107); CREATININE FOR GFR 1.14 MG/DL (0.70-1.30); GLOMERULAR FILTRATION RATE > 60.0 (>49); GLUCOSE, FASTING 122 MG/DL (74-106); MAGNESIUM LEVEL 1.9 MG/DL (1.8-2.4); POTASSIUM SERUM 4.9 MMOL/L (3.5-5.1); SODIUM LEVEL 138 MMOL/L (136-145)
[2023-12-05 08:57] VITALS: BP 132/89
[2023-12-05 14:06] VITALS: BP 110/57
[2023-12-05 14:41] VITALS: BP 121/67; TEMP 97.7; O2SAT 100
[2023-12-05] MEDS: GABAPENTIN 300 MG CAP PO SCH (16:01)
[2023-12-05 20:29] VITALS: BP 127/69; TEMP 97.5; O2SAT 99
[2023-12-06 06:43] VITALS: BP 142/70; TEMP 97.5; O2SAT 96
[2023-12-06 06:54] LABS: BASO # 0.1 10^3/uL (0.0-0.2); BASO % 0.7 % (0.0-1.0); EOS # 0.3 10^3/uL (0.0-0.5); EOS % 4.1 % (0.0-3.0); HEMATOCRIT 24.1 % (42.0-52.0); HEMOGLOBIN 7.6 g/dl (13.5-17.5); LYMPH % 14.6 % (24.0-44.0); MEAN CORPUSCULAR HEMOGLOBIN 30.8 pg (27.0-33.0); MEAN CORPUSCULAR HGB CONC 31.5 g/dl (32.0-36.5); MEAN CORPUSCULAR VOLUME 97.6 fl (80.0-96.0); MONO # 0.6 10^3/uL (0.0-0.8); MONO % 8.3 % (2.0-8.0); NEUTROPHILS # 4.9 10^3/uL (1.5-8.5); NEUTROPHILS % 71.6 % (36.0-66.0); PLATELET COUNT, AUTOMATED 212 10^3/uL (150-450); RED BLOOD COUNT 2.47 10^6/uL (4.30-6.10); WHITE BLOOD COUNT 6.8 10^3/uL (4.0-10.0)
[2023-12-06 07:24] LABS: BLOOD UREA NITROGEN 33 MG/DL (9-23); CALCIUM LEVEL 7.7 MG/DL (8.3-10.6); CARBON DIOXIDE LEVEL 26 MMOL/L (20-31); CHLORIDE LEVEL 108 MMOL/L (98-107); CREATININE FOR GFR 1.14 MG/DL (0.70-1.30); GLOMERULAR FILTRATION RATE > 60.0 (>49); GLUCOSE, FASTING 103 MG/DL (74-106); MAGNESIUM LEVEL 1.9 MG/DL (1.8-2.4); POTASSIUM SERUM 4.9 MMOL/L (3.5-5.1); SODIUM LEVEL 137 MMOL/L (136-145)
[2023-12-06] MEDS: VANCOMYCIN HCL 750 MG, VIAL MATE ADAPTER 1 EACH in D5W 250 ML IV SCH (10:56)
[2023-12-06] MEDS ORDERED: SLF IV ×2 (11:44)
[2023-12-06] MEDS ORDERED: VANC1INJ37 IV (11:44)
[2023-12-06] MEDS ORDERED: FOLI1TAB11 PO (11:44)
[2023-12-06] MEDS ORDERED: SENO8.6T10 PO (11:44)
[2023-12-06] MEDS ORDERED: GABA-282 PO (11:44)
[2023-12-06] MEDS ORDERED: SANT250O8 TOP (11:44)
[2023-12-06 13:55] VITALS: BP 138/72; TEMP 98.1; O2SAT 98
[2023-12-06 20:18] VITALS: BP 114/69; TEMP 97.5; O2SAT 98
[2023-12-07] MEDS ORDERED: BISACODYL 10MG SUPP PR PRN (05:00)
[2023-12-07 05:30] VITALS: BP 137/91; TEMP 97.3; O2SAT 98
[2023-12-07] MEDS: MOM 30ML SUSPENSION UDC PO PRN (06:35)
[2023-12-07 07:47] LABS: BASO # 0.1 10^3/uL (0.0-0.2); BASO % 0.8 % (0.0-1.0); EOS # 0.2 10^3/uL (0.0-0.5); EOS % 3.5 % (0.0-3.0); HEMATOCRIT 26.1 % (42.0-52.0); HEMOGLOBIN 8.4 g/dl (13.5-17.5); LYMPH # 0.8 10^3/uL (1.5-5.0); LYMPH % 11.4 % (24.0-44.0); MEAN CORPUSCULAR HEMOGLOBIN 31.2 pg (27.0-33.0); MEAN CORPUSCULAR HGB CONC 32.2 g/dl (32.0-36.5); MONO # 0.5 10^3/uL (0.0-0.8); MONO % 7.6 % (2.0-8.0); NEUTROPHILS % 75.9 % (36.0-66.0); PLATELET COUNT, AUTOMATED 213 10^3/uL (150-450); RED BLOOD COUNT 2.69 10^6/uL (4.30-6.10); WHITE BLOOD COUNT 6.6 10^3/uL (4.0-10.0)
[2023-12-07 08:04] VITALS: BP 142/90; TEMP 97.5; O2SAT 97
[2023-12-07 08:11] LABS: BLOOD UREA NITROGEN 32 MG/DL (9-23); CALCIUM LEVEL 7.9 MG/DL (8.3-10.6); CARBON DIOXIDE LEVEL 27 MMOL/L (20-31); CHLORIDE LEVEL 106 MMOL/L (98-107); CREATININE FOR GFR 1.11 MG/DL (0.70-1.30); GLOMERULAR FILTRATION RATE > 60.0 (>49); GLUCOSE, FASTING 165 MG/DL (74-106); MAGNESIUM LEVEL 1.8 MG/DL (1.8-2.4); POTASSIUM SERUM 4.9 MMOL/L (3.5-5.1); SODIUM LEVEL 136 MMOL/L (136-145)
[2023-12-07] MEDS ORDERED: ursodioL 300MG CAP PO SCH (09:00)
[2023-12-07 12:44] VITALS: BP 143/86
[2023-12-07 14:06] VITALS: BP 135/68; TEMP 97.6; O2SAT 98
== END 2023-12-07 15:05 | disposition other institution (70) | DRG 314 ==
LOC: EDBD 11:14 → M ED 11:14 → M ED INP 17:08 → OBSVTOIN 17:09 → EEVIPCON 17:09 → M MS5PR 20:15
PROVIDERS: ADMIT Internal Medicine; ATTEND Internal Medicine
PROC: 0LT Tendons, Resection (ICD-10-PCS; 2023-11-25)
PROC: 0QBM0ZZ Excision of Left Tarsal, Open Approach (ICD-10-PCS; principal; 2023-11-25 17:30)
DX: E11.69 Type 2 diabetes mellitus with other specified complication (principal); M86.172 Other acute osteomyelitis, left ankle and foot; L89.153 Pressure ulcer of sacral region, stage 3; I13.0 Hypertensive heart and chronic kidney disease with heart failure and stage 1 through stage 4 chronic kidney disease, or unspecified chronic kidney disease; E11.22 Type 2 diabetes mellitus with diabetic chronic kidney disease; D62 Acute posthemorrhagic anemia; B02.29 Other postherpetic nervous system involvement; E11.42 Type 2 diabetes mellitus with diabetic polyneuropathy; E11.628 Type 2 diabetes mellitus with other skin complications; E11.621 Type 2 diabetes mellitus with foot ulcer; E83.42 Hypomagnesemia; L89.629 Pressure ulcer of left heel, unspecified stage; E11.51 Type 2 diabetes mellitus with diabetic peripheral angiopathy without gangrene; N18.30 Chronic kidney disease, stage 3 unspecified; I25.10 Atherosclerotic heart disease of native coronary artery without angina pectoris; I48.91 Unspecified atrial fibrillation; G47.33 Obstructive sleep apnea (adult) (pediatric); J44.9 Chronic obstructive pulmonary disease, unspecified; E78.5 Hyperlipidemia, unspecified; I73.9 Peripheral vascular disease, unspecified; N40.1 Benign prostatic hyperplasia with lower urinary tract symptoms; K21.9 Gastro-esophageal reflux disease without esophagitis; F32.A Depression, unspecified; Z79.82 Long term (current) use of aspirin; Z79.4 Long term (current) use of insulin; Z79.899 Other long term (current) drug therapy; Z88.1 Allergy status to other antibiotic agents; Z88.8 Allergy status to other drugs, medicaments and biological substances; Z11.52 Encounter for screening for COVID-19

== ENCOUNTER 2024-05-15 15:51 | Inpatient (IN) | payer BC, MEDICARE, MEDICAID ==
[~2024-05-15] VITALS: Ht 180.3 cm; Wt 107.9 kg
[2024-05-15] VITALS (13 sets, daily range): BP systolic 147–161; BP diastolic 74–85; TEMP 98.1; O2SAT 98–100
[~2024-05-15 15:51] MED LIST changes: +AMLO1TAB25 PO; +BASA100I SQ; +BUDE10.2 IH; +CLOP75TA2 PO; +FLUT1BLS17 INH; +FOLI1TAB11 PO; +GABA-1171 PO; +GABA-282 PO; +HEPA10IN30 IV; +HUMA100I5 SC; +HYDR-3713 PO; +LACT10SO3 PO; +LANTINJ4 SC; +LISI10TA22 PO; +SENN-186 PO; +SENN1TAB85 PO; +SENO8.6T10 PO; +SLF IV; +TORS20TA2 PO; +VANC1INJ37 IV; +VENL150C43 PO; +VENL37.598 PO; +VENL75CA47 PO
[2024-05-15] MEDS ORDERED: ISOVUE-370 76% 100ML VIAL As Ordered ONE (16:55)
[2024-05-15 17:02] LABS: BASO % 0.3 % (0.0-1.0); EOS # 0.2 10^3/uL (0.0-0.5); EOS % 1.4 % (0.0-3.0); HEMATOCRIT 33.6 % (42.0-52.0); HEMOGLOBIN 11.2 g/dl (13.5-17.5); LYMPH # 0.9 10^3/uL (1.5-5.0); LYMPH % 8.2 % (24.0-44.0); MEAN CORPUSCULAR HEMOGLOBIN 27.1 pg (27.0-33.0); MEAN CORPUSCULAR HGB CONC 33.3 g/dl (32.0-36.5); MEAN CORPUSCULAR VOLUME 81.4 fl (80.0-96.0); MONO # 0.7 10^3/uL (0.0-0.8); MONO % 5.8 % (2.0-8.0); NEUTROPHILS # 9.6 10^3/uL (1.5-8.5); NEUTROPHILS % 83.7 % (36.0-66.0); PLATELET COUNT, AUTOMATED 271 10^3/uL (150-450); RED BLOOD COUNT 4.13 10^6/uL (4.30-6.10); WHITE BLOOD COUNT 11.5 10^3/uL (4.0-10.0)
[2024-05-15 17:16] LABS: ERYTHROCYTE SEDIMENTATION RATE 86 mm/hr (0-20)
[2024-05-15] MEDS: ACETAMINOPHEN *IV* 1,000 MG in IV 1 EA IV ONE (17:16)
[2024-05-15 17:23] LABS: ALBUMIN 2.4 G/DL (3.2-5.2); ALKALINE PHOSPHATASE 139 U/L (46-116); ALT/SGPT 64 U/L (7.0-40); AST/SGOT 43 U/L (<34); BILIRUBIN,DIRECT < 0.1 MG/DL (<0.4); BILIRUBIN,TOTAL 0.3 MG/DL (0.3-1.2); BLOOD UREA NITROGEN 54 MG/DL (9-23); CALCIUM LEVEL 8.4 MG/DL (8.3-10.6); CARBON DIOXIDE LEVEL 25 MMOL/L (20-31); CHLORIDE LEVEL 107 MMOL/L (98-107); CREATININE FOR GFR 1.45 MG/DL (0.70-1.30); GLOMERULAR FILTRATION RATE 52.8 (>49); GLUCOSE, FASTING 248 MG/DL (74-106); POTASSIUM SERUM 4.7 MMOL/L (3.5-5.1); SODIUM LEVEL 136 MMOL/L (136-145); TOTAL PROTEIN 6.4 G/DL (5.7-8.2)
[2024-05-15] MEDS: GENTAMICIN 120 MG in D5W 50 ML IV ONE (17:40)
[2024-05-15] MEDS ORDERED: GLUCAGON INJ 1MG VIAL SC PRN (18:10)
[2024-05-15] MEDS ORDERED: DEXTROSE 50% 50ML SYRINGE IV PRN (18:10)
[2024-05-15] MEDS ORDERED: GLUCOSE 4 GM CHEW PO PRN (18:10)
[2024-05-15] MEDS ORDERED: VANCOMYCIN HCL 1,000 MG, VIAL MATE ADAPTER 1 EACH in D5W 250 ML IV SCH (18:10)
[2024-05-15] MEDS ORDERED: VENL75CA47 PO (19:40)
[2024-05-15] MEDS ORDERED: VENL37.598 PO (19:40)
[2024-05-15] MEDS ORDERED: AMLO1TAB25 PO (19:40)
[2024-05-15] MEDS ORDERED: JUVEPOW PO (19:40)
[2024-05-15] MEDS ORDERED: BRIM1OPD OU (19:40)
[2024-05-15] MEDS ORDERED: FOLI1TAB11 PO (19:40)
[2024-05-15] MEDS ORDERED: SANT250O8 TOP (19:40)
[2024-05-15] MEDS ORDERED: HOME MED LIST COMPLETE! XX SCH (19:50)
[2024-05-15] MEDS: VANCOMYCIN HCL 1,000 MG, VIAL MATE ADAPTER 1 EACH in D5W 250 ML IV ONE ×2 (20:08→21:00)
[2024-05-15] MEDS ORDERED: NITROGLYCERIN 0.4MG SUBL TABLET SL PRN (20:10)
[2024-05-15] MEDS: BRIMONIDINE 0.1% OPHTH SOLN 5ML OU SCH (21:00)
[2024-05-15] MEDS: INSULIN LISPRO (NovoLOG) PER UNIT SC SCH (21:00)
[2024-05-15] MEDS: ISOSORBIDE DIN. (ISORDIL) 20 MG TAB PO SCH (21:00)
[2024-05-15] MEDS: LATANOPROST 0.005% OPHTH SOLN 2.5 ML OU SCH (21:00)
[2024-05-15] MEDS: NS 1,000 ML IV SCH (21:01)
[2024-05-15] MEDS: ATORVASTATIN 20 MG TAB PO SCH (21:01)
[2024-05-15] MEDS: busPIRone 5 MG TAB PO SCH (21:12)
[2024-05-15] MEDS: LEVEMIR (INSULIN DETEMIR) 1 UNITS/0.01ML SC SCH (21:15)
[2024-05-15] MEDS: NORCO, ANEXSIA 5/325MG TABLET (HYDROcodone/ACETAMINOPHEN) PO PRN (21:30)
[2024-05-15] MEDS: ADVAIR HFA 230/21MCG INHALER INH SCH (23:22)
[2024-05-15] MEDS: MEROPENEM INJ 1 GM in IV 1 EA IV SCH (23:40)
[2024-05-15] MEDS: HEPARIN SOD (PORCINE) 5000UNITS/ML 1ML VIAL/SYRINGE SC SCH (23:46)
[2024-05-16] VITALS (11 sets, daily range): BP systolic 121–160; BP diastolic 63–86; TEMP 97–98.1; O2SAT 98–100
[2024-05-16] MEDS: MORPHINE 2 MG/ML 1ML VIAL IV ONE (03:48)
[2024-05-16 05:27] LABS: BASO % 0.4 % (0.0-1.0); EOS # 0.2 10^3/uL (0.0-0.5); EOS % 1.5 % (0.0-3.0); HEMATOCRIT 29.5 % (42.0-52.0); HEMOGLOBIN 9.8 g/dl (13.5-17.5); LYMPH % 8.8 % (24.0-44.0); MEAN CORPUSCULAR HEMOGLOBIN 26.9 pg (27.0-33.0); MEAN CORPUSCULAR HGB CONC 33.2 g/dl (32.0-36.5); MONO # 0.9 10^3/uL (0.0-0.8); MONO % 8.2 % (2.0-8.0); NEUTROPHILS # 8.8 10^3/uL (1.5-8.5); NEUTROPHILS % 80.5 % (36.0-66.0); PLATELET COUNT, AUTOMATED 210 10^3/uL (150-450); RED BLOOD COUNT 3.64 10^6/uL (4.30-6.10); WHITE BLOOD COUNT 10.9 10^3/uL (4.0-10.0)
[2024-05-16 05:53] LABS: C REACTIVE PROTEIN QUANTITATIV 3.7 MG/DL (<1.0)
[2024-05-16 06:01] LABS: BILIRUBIN,TOTAL 0.3 MG/DL (0.3-1.2); CALCIUM LEVEL 7.8 MG/DL (8.3-10.6); CREATININE FOR GFR 1.44 MG/DL (0.70-1.30); GLOMERULAR FILTRATION RATE 53.3 (>49); MAGNESIUM LEVEL 1.9 MG/DL (1.8-2.4); POTASSIUM SERUM 4.1 MMOL/L (3.5-5.1); TOTAL PROTEIN 5.4 G/DL (5.7-8.2)
[2024-05-16] MEDS: INSULIN LISPRO (NovoLOG) PER UNIT SC SCH (07:30)
[2024-05-16] MEDS: ASPIRIN 81MG ENTERIC TABLET PO SCH (08:48)
[2024-05-16] MEDS: SENOKOT S TAB PO SCH (08:48)
[2024-05-16] MEDS: CLOPIDOGREL 75 MG TAB PO SCH (08:49)
[2024-05-16] MEDS: AMIODARONE 200 MG TAB (PACERONE) PO SCH (08:49)
[2024-05-16] MEDS: TAMSULOSIN 0.4 MG CAP PO SCH (08:55)
[2024-05-16] MEDS: FOLIC ACID 1MG TAB PO SCH (08:55)
[2024-05-16] MEDS: VENLAFAXINE **XR** 75MG CAPSULE PO SCH (08:55)
[2024-05-16] MEDS: VENLAFAXINE **XR** 37.5 MG CAPSULE PO SCH (08:55)
[2024-05-16] MEDS ORDERED: VANCOMYCIN HCL 750 MG, VIAL MATE ADAPTER 1 EACH in D5W 250 ML IV SCH ×2 (09:00→10:00)
[2024-05-16] MEDS: PANTOPRAZOLE 40MG TAB (PROTONIX) PO SCH (09:04)
[2024-05-16] MEDS: VANCOMYCIN HCL 750 MG, VIAL MATE ADAPTER 1 EACH in D5W 250 ML IV SCH (10:03)
[2024-05-16] MEDS: PERCOCET 5MG/325MG TAB PO PRN (15:48)
[2024-05-17 03:28] VITALS: BP 142/66; TEMP 97.4; O2SAT 99
[2024-05-17 07:49] VITALS: BP 148/70; TEMP 97.2; O2SAT 98
[2024-05-17 08:22] LABS: BASO # 0.1 10^3/uL (0.0-0.2); BASO % 0.5 % (0.0-1.0); EOS # 0.1 10^3/uL (0.0-0.5); EOS % 1.5 % (0.0-3.0); HEMATOCRIT 28.2 % (42.0-52.0); LYMPH % 10.3 % (24.0-44.0); MEAN CORPUSCULAR HEMOGLOBIN 26.5 pg (27.0-33.0); MEAN CORPUSCULAR HGB CONC 31.9 g/dl (32.0-36.5); MEAN CORPUSCULAR VOLUME 82.9 fl (80.0-96.0); MONO # 0.6 10^3/uL (0.0-0.8); MONO % 6.7 % (2.0-8.0); NEUTROPHILS # 7.5 10^3/uL (1.5-8.5); NEUTROPHILS % 80.6 % (36.0-66.0); PLATELET COUNT, AUTOMATED 198 10^3/uL (150-450); WHITE BLOOD COUNT 9.3 10^3/uL (4.0-10.0)
[2024-05-17 08:45] LABS: C REACTIVE PROTEIN QUANTITATIV 4.4 MG/DL (<1.0)
[2024-05-17 08:47] LABS: ALBUMIN 1.9 G/DL (3.2-5.2); BILIRUBIN,TOTAL 0.3 MG/DL (0.3-1.2); CALCIUM LEVEL 7.7 MG/DL (8.3-10.6); CREATININE FOR GFR 1.66 MG/DL (0.70-1.30); GLOMERULAR FILTRATION RATE 45.2 (>49); MAGNESIUM LEVEL 1.9 MG/DL (1.8-2.4); POTASSIUM SERUM 4.4 MMOL/L (3.5-5.1); TOTAL PROTEIN 5.3 G/DL (5.7-8.2)
[2024-05-17 11:31] VITALS: BP 135/64; TEMP 97.5; O2SAT 98
[2024-05-17] MEDS: IPRATROPIUM 0.5MG/ALBUTEROL 2.5MG INH SOL UD 3ML (DUONEB) INH PRN (14:01)
[2024-05-17 16:00] VITALS: BP 144/66; TEMP 97.3; O2SAT 98
[2024-05-17 20:00] VITALS: BP 140/78; TEMP 97.7; O2SAT 95
[2024-05-17] MEDS: diphenhydrAMINE 25MG CAP PO ONE (23:02)
[2024-05-17 23:32] VITALS: BP 151/68; TEMP 97; O2SAT 100
[2024-05-18] MEDS: ACETAMINOPHEN TAB 650MG DOSE (2X325MG) PO PRN (05:13)
[2024-05-18 07:37] LABS: BASO # 0.1 10^3/uL (0.0-0.2); BASO % 0.5 % (0.0-1.0); EOS # 0.2 10^3/uL (0.0-0.5); EOS % 2.1 % (0.0-3.0); HEMATOCRIT 26.2 % (42.0-52.0); HEMOGLOBIN 8.5 g/dl (13.5-17.5); LYMPH # 0.8 10^3/uL (1.5-5.0); LYMPH % 7.6 % (24.0-44.0); MEAN CORPUSCULAR HGB CONC 32.4 g/dl (32.0-36.5); MEAN CORPUSCULAR VOLUME 83.2 fl (80.0-96.0); MONO # 0.6 10^3/uL (0.0-0.8); MONO % 5.9 % (2.0-8.0); NEUTROPHILS # 8.2 10^3/uL (1.5-8.5); NEUTROPHILS % 83.3 % (36.0-66.0); PLATELET COUNT, AUTOMATED 201 10^3/uL (150-450); RED BLOOD COUNT 3.15 10^6/uL (4.30-6.10); WHITE BLOOD COUNT 9.8 10^3/uL (4.0-10.0)
[2024-05-18 07:52] VITALS: BP 150/60; TEMP 97.2; O2SAT 99
[2024-05-18] MEDS ORDERED: MIRALAX *UNIT DOSE* 17GM PACKET PO PRN (08:00)
[2024-05-18 08:08] LABS: C REACTIVE PROTEIN QUANTITATIV 4.5 MG/DL (<1.0)
[2024-05-18 08:09] LABS: BILIRUBIN,TOTAL 0.2 MG/DL (0.3-1.2); CALCIUM LEVEL 7.9 MG/DL (8.3-10.6); CREATININE FOR GFR 1.85 MG/DL (0.70-1.30); GLOMERULAR FILTRATION RATE 39.9 (>49); POTASSIUM SERUM 4.7 MMOL/L (3.5-5.1); TOTAL PROTEIN 5.4 G/DL (5.7-8.2)
[2024-05-18] MEDS: NS 1,000 ML IV ONE (11:40)
[2024-05-18 11:51] VITALS: BP 145/62; TEMP 97; O2SAT 99
[2024-05-18 16:59] VITALS: BP 141/67; TEMP 97.6; O2SAT 98
[2024-05-18 20:10] VITALS: BP 150/71; TEMP 97.5; O2SAT 100
[2024-05-18 20:45] VITALS: BP 141/67
[2024-05-18] MEDS: CEFDINIR 300 MG CAP (OMNICEF) PO SCH (21:05)
[2024-05-19 03:24] VITALS: BP 133/60; TEMP 97; O2SAT 99
[2024-05-19 07:06] LABS: BASO % 0.5 % (0.0-1.0); EOS # 0.3 10^3/uL (0.0-0.5); EOS % 3.3 % (0.0-3.0); HEMATOCRIT 26.9 % (42.0-52.0); HEMOGLOBIN 8.7 g/dl (13.5-17.5); LYMPH # 0.9 10^3/uL (1.5-5.0); MEAN CORPUSCULAR HEMOGLOBIN 26.9 pg (27.0-33.0); MEAN CORPUSCULAR HGB CONC 32.3 g/dl (32.0-36.5); MEAN CORPUSCULAR VOLUME 83.3 fl (80.0-96.0); MONO # 0.5 10^3/uL (0.0-0.8); MONO % 5.7 % (2.0-8.0); NEUTROPHILS # 6.8 10^3/uL (1.5-8.5); NEUTROPHILS % 79.8 % (36.0-66.0); PLATELET COUNT, AUTOMATED 191 10^3/uL (150-450); RED BLOOD COUNT 3.23 10^6/uL (4.30-6.10); WHITE BLOOD COUNT 8.6 10^3/uL (4.0-10.0)
[2024-05-19 07:42] LABS: C REACTIVE PROTEIN QUANTITATIV 3.4 MG/DL (<1.0)
[2024-05-19 07:44] LABS: BILIRUBIN,TOTAL 0.2 MG/DL (0.3-1.2); CALCIUM LEVEL 7.8 MG/DL (8.3-10.6); CREATININE FOR GFR 1.77 MG/DL (0.70-1.30); POTASSIUM SERUM 4.9 MMOL/L (3.5-5.1); TOTAL PROTEIN 5.4 G/DL (5.7-8.2)
[2024-05-19] MEDS ORDERED: VANCOMYCIN INTERMITTENT/PULSE DOSING BY CLINICAL PHARMACIST PER DOSING PROTOCOL XX SCH (07:45)
[2024-05-19 08:10] VITALS: BP 131/61; TEMP 97.4; O2SAT 98
[2024-05-19] MEDS: VANCOMYCIN HCL 500 MG in D5W MINI-BAG PLUS 100 ML IV ONE (10:10)
[2024-05-19] MEDS ORDERED: CEFD1CAP9 PO (11:08)
[2024-05-19] MEDS ORDERED: ZYVO1TAB PO (11:08)
[2024-05-19 11:52] VITALS: BP 140/69; TEMP 96.4; O2SAT 97
== END 2024-05-19 15:05 | DRG 380 ==
LOC: EDBD 15:51 → M ED 15:51 → M ED INP 18:08 → M PCU 22:46
PROVIDERS: ADMIT Internal Medicine; ATTEND Internal Medicine
DX: L89.154 Pressure ulcer of sacral region, stage 4 (principal); J96.11 Chronic respiratory failure with hypoxia; R53.2 Functional quadriplegia; E11.22 Type 2 diabetes mellitus with diabetic chronic kidney disease; I48.91 Unspecified atrial fibrillation; B02.29 Other postherpetic nervous system involvement; I13.0 Hypertensive heart and chronic kidney disease with heart failure and stage 1 through stage 4 chronic kidney disease, or unspecified chronic kidney disease; I50.42 Chronic combined systolic (congestive) and diastolic (congestive) heart failure; E11.51 Type 2 diabetes mellitus with diabetic peripheral angiopathy without gangrene; T83.511A Infection and inflammatory reaction due to indwelling urethral catheter, initial encounter; L89.629 Pressure ulcer of left heel, unspecified stage; N18.30 Chronic kidney disease, stage 3 unspecified; K76.0 Fatty (change of) liver, not elsewhere classified; E11.649 Type 2 diabetes mellitus with hypoglycemia without coma; G47.33 Obstructive sleep apnea (adult) (pediatric); J44.9 Chronic obstructive pulmonary disease, unspecified; E78.5 Hyperlipidemia, unspecified; N40.0 Benign prostatic hyperplasia without lower urinary tract symptoms; B96.4 Proteus (mirabilis) (morganii) as the cause of diseases classified elsewhere; B95.62 Methicillin resistant Staphylococcus aureus infection as the cause of diseases classified elsewhere; B95.2 Enterococcus as the cause of diseases classified elsewhere; F41.9 Anxiety disorder, unspecified; F32.A Depression, unspecified; R41.89 Other symptoms and signs involving cognitive functions and awareness; D63.8 Anemia in other chronic diseases classified elsewhere; I25.10 Atherosclerotic heart disease of native coronary artery without angina pectoris; R26.89 Other abnormalities of gait and mobility; I87.2 Venous insufficiency (chronic) (peripheral); Z79.899 Other long term (current) drug therapy; Z79.4 Long term (current) use of insulin; Z88.1 Allergy status to other antibiotic agents; Z88.8 Allergy status to other drugs, medicaments and biological substances; Z95.1 Presence of aortocoronary bypass graft; Z79.02 Long term (current) use of antithrombotics/antiplatelets; Z74.01 Bed confinement status; Z86.14 Personal history of Methicillin resistant Staphylococcus aureus infection; Z79.82 Long term (current) use of aspirin; Y84.6 Urinary catheterization as the cause of abnormal reaction of the patient, or of later complication, without mention of misadventure at the time of the procedure